=== PATIENT | female | born 1970 | race Caucasian/White ===

== ENCOUNTER → 2017-08-20 | Outpatient (CLI) | payer OTHER ==
[~2017-08-20] MED LIST: ACHD5005 PO; CYCL10TA9 PO; DOCU-143 PO; HYDR-3731 PO; HYOS0.1281 PO; OXYC-12 PO; PNT40TEC PO; POTA10CA16 PO
[2017-08-20 16:09] LABS: BILIRUBIN,URINE NEGATIVE (NEGATIVE); CLARITY,URINE CLEAR; COLOR,URINE YELLOW; GLUCOSE, URINE (UA) NEGATIVE (NEGATIVE); KETONES,URINE NEGATIVE (NEGATIVE); LEUKOCYTE ESTERASE ,URINE NEGATIVE (NEGATIVE); NITRITE,URINE NEGATIVE (NEGATIVE); PH,URINE 6 (5-9); PROTEIN,URINE NEGATIVE (NEGATIVE); UROBILINOGEN,URINE NORMAL (NORMAL)
[2017-08-20 16:21] LABS: BACTERIA,URINE TRACE /HPF
== END ==
LOC: LAB 15:28
PROVIDERS: ATTEND Internal Medicine
DX: R10.84 Generalized abdominal pain (principal); R30.0 Dysuria
CPT/HCPCS: 81000

== ENCOUNTER → 2018-11-12 | Outpatient (CLI) | payer OTHER ==
--- NOTE | 2018-11-12 15:56 | Diagnostic Imaging Report ---
PROCEDURE: US Non-OB pelvis comp/trans. TECHNIQUE: Multiple realtime grayscale images were obtained of the pelvis in various projections endovaginally. Transabdominal imaging was also performed. INDICATION: Postmenopausal bleeding. FINDINGS: The uterus measures 6.4 x 4.9 x 3.2 cm. The endometrium is 5 mm in thickness. No myometrial mass is identified. The right ovary was not visualized. Left ovary measures 5.4 x 3.2 x 2.1 cm. The left ovary does contain a simple appearing cyst measuring 2.2 cm. There is blood flow to the left ovary. No free fluid is seen IMPRESSION: Left ovarian cyst. The study is otherwise unremarkable. Dictated by: Dictated on workstation # [id number]
== END ==
LOC: RAD 14:02
PROVIDERS: ATTEND Obstetrics & Gynecology
DX: N83.202 Unspecified ovarian cyst, left side (principal); N95.0 Postmenopausal bleeding
CPT/HCPCS: 76830; 76856

== ENCOUNTER 2018-11-28 07:43 | Outpatient (CLI) | payer OTHER ==
[~2018-11-28] VITALS: Ht 157.5 cm; Wt 95.3 kg
== END 2018-11-28 13:30 | disposition home or self-care (01) ==
LOC: PREOP 07:43
PROVIDERS: ATTEND Obstetrics & Gynecology
DX: Z01.818 Encounter for other preprocedural examination (principal)

== ENCOUNTER 2018-12-05 09:36 | Day surgery (SDC) | payer OTHER ==
[~2018-12-05] VITALS: Ht 157.5 cm; Wt 95.3 kg
[2018-12-05] VITALS (12 sets, daily range): BP systolic 93–117; BP diastolic 54–100
[2018-12-05] MEDS: LACTATED RINGERS 1,000 ML IV PRN ×2 (10:00→12:36)
[2018-12-05 10:16] LABS: BASOPHILS % (AUTO) 0 % (0-10); EOSINOPHILS # (AUTO) 0.1 10^3/uL (0.0-0.3); EOSINOPHILS % (AUTO) 2 % (0-10); HEMATOCRIT 39 % (35-52); HEMOGLOBIN 12.8 G/DL (11.5-16.0); LYMPHOCYTES # (AUTO) 2.3 X 10^3 (1.0-4.0); LYMPHOCYTES % (AUTO) 36 % (12-44); MEAN CORPUSCULAR HEMOGLOBIN 28 PG (25-34); MEAN CORPUSCULAR HGB CONC 33 G/DL (32-36); MEAN CORPUSCULAR VOLUME 84 FL (80-99); MEAN PLATELET VOLUME 10.7 FL (7.4-10.4); MONOCYTES # (AUTO) 0.4 X 10^3 (0.0-1.0); MONOCYTES % (AUTO) 7 % (0-12); NEUTROPHILS # (AUTO) 3.5 X 10^3 (1.8-7.8); NEUTROPHILS % (AUTO) 55 % (42-75); PLATELET COUNT 219 10^3/uL (130-400); RED CELL DISTRIBUTION WIDTH 14.2 % (10.0-14.5); WHITE BLOOD COUNT 6.4 10^3/uL (4.3-11.0)
[2018-12-05] MEDS ORDERED: D5 LR IV SOLUTION 1,000 ML IV SCH ×2 (10:39)
--- NOTE | 2018-12-05 10:39 | Progress Note-Pre Operative ---
Pre-Operative Progress Note H&P Reviewed The H&P was reviewed, patient examined and no changes noted. Date Seen by Provider: December 05, 2018 Time Seen by Provider: 10:35 Date H&P Reviewed: December 05, 2018 Time H&P Reviewed: 10:35 Pre-Operative Diagnosis: Aub, pmb LAZARO ALMANZAR DO December 05, 2018 10:39
--- NOTE | 2018-12-05 10:43 | Discharge Inst-Women's Service ---
Discharge Inst-Women's Serv Depart Medication/Instructions New, Converted or Re-Newed RX: RX on Chart Consults/Follow Up Additional Follow Up: Yes Orders/Referrals Dr. Almanzar in 2 weeks Activity Activity: Activity as Tolerated Driving Instructions: You May Drive (do not drive today) NO SMOKING: NO SMOKING Nothing Inside Vagina: No Douching, No [place], No Tampons Diet Discharge Diet: No Restrictions Symptoms to Report to : Bleeding Excessive, Pain Increased, Fever Over 101 Degrees F, Vaginal Bleeding Increase, Questions/Concerns LAZARO ALMANZAR DO December 05, 2018 10:43
[2018-12-05] MEDS ORDERED: IBUP-1773 PO (10:45)
[2018-12-05] MEDS ORDERED: KETOROLAC 30 MG/ML VIAL IVP ONE ×2 (10:45)
[2018-12-05] MEDS ORDERED: ONDANSETRON 4 MG/2 ML (SDV) Z0FRAN IVP PRN ×3 (10:45→13:30)
[2018-12-05] MEDS ORDERED: MIDAZOLAM 2 MG/2 ML (VERSED) VIAL ONE (11:31)
[2018-12-05] MEDS ORDERED: fentaNYL INJECTION 100 MCG/2 ML AMP ONE (11:31)
[2018-12-05] MEDS ORDERED: SEVOFLURANE (ULTANE) 15 ML INHAL SOLN ONE ×2 (11:31→12:55)
[2018-12-05] MEDS ORDERED: DEXAMETHASONE 10 MG/ML (DECADRON) 1 ML VIAL ONE (11:31)
[2018-12-05] MEDS ORDERED: proPOfol 200 MG/20 ML (DIPRIVAN) VIAL IV ONE ×2 (11:31→13:00)
[2018-12-05] MEDS ORDERED: ONDANSETRON 4 MG/2 ML (SDV) Z0FRAN ONE (11:31)
[2018-12-05] MEDS ORDERED: LIDOCAINE PF 2% 5 ML (XYLOCAINE) VIAL ONE (11:31)
[2018-12-05] MEDS ORDERED: BUPIVACAINE 0.25% 30 ML (SENSORCAINE) VIAL ONE (11:47)
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
[2018-12-05] MEDS ORDERED: SUCCINYLCHOLINE INJ 100 MG/5 ML SYR ONE (12:55)
[2018-12-05] MEDS ORDERED: KETOROLAC 30 MG/ML VIAL ONE (12:58)
[2018-12-05] MEDS ORDERED: HYDROmorphone 2 MG/ML VIAL (DILAUDID) IV ONE (13:30)
--- NOTE | 2018-12-05 14:26 | Anesthesia-General Post-Op ---
General Patient Condition Mental Status/LOC: Same as Preop Cardiovascular: Satisfactory Nausea/Vomiting: Absent Respiratory: Satisfactory Pain: Controlled Complications: Absent Post Op Complications Complications None Follow Up Care/Instructions Patient Instructions None needed. Anesthesia/Patient Condition Patient Condition Patient is doing well, no complaints, stable vital signs, no apparent adverse anesthesia problems. No complications reported per nursing. LEANDRA ABDI CRNA December 05, 2018 14:26
--- NOTE | 2018-12-05 18:13 | OPERATIVE REPORT ---
DATE OF SERVICE: 12/05/2018 PREOPERATIVE DIAGNOSES: A 48-year-old female with abnormal uterine bleeding and postmenopausal bleeding. POSTOPERATIVE DIAGNOSES: A 48-year-old female with abnormal uterine bleeding and postmenopausal bleeding. PROCEDURES: D and C, hysteroscopy. SURGEON: Lazaro Almanzar DO ANESTHESIA: General LMA. ESTIMATED BLOOD LOSS: Minimal. URINE OUTPUT: 100 mL. FLUIDS: 1100 mL lactated Ringer's solution. FINDINGS: A fluffy endometrial tissue suspicious for a polyp around the right endometrial sidewall. SPECIMEN SENT: Endometrial curettings. INDICATIONS FOR PROCEDURE: This 48-year-old patient was a consultation to me from Dr. Foley for abnormal postmenopausal uterine bleeding that was continued to occur more frequently and heavier despite an elevated FSH. I saw the patient in the office and discussed endometrial sampling versus D and C. We discussed the pros and cons of each and she decided that a D and C would probably be best for her. Risks of the procedure were discussed with the patient in detail including risk of bleeding, infection, damage to surrounding structures including, but not limited to the uterus itself. After all of her questions were answered, the consent was reviewed in the preoperative area and the patient was taken to the operating room. OPERATIVE REPORT IN DETAIL: Once in the operating room, anesthesia was found to be adequate. She was placed in dorsal lithotomy position and prepped and draped in normal sterile fashion. The bladder was drained using straight catheterization. A weighted speculum was inserted into the patient's vagina. Right angle retractor was used to visualize the cervix, which was grasped at 12 o'clock position using a long Allis clamp. I then performed a paracervical block at 3 and 9 o'clock positions on the cervix using 0.25% Marcaine. 5 mL were injected at each site. Care was taken to aspirate before injecting. After that is performed, I then gently sounded the uterine cavity, depth was found to be 7 cm. I then gently dilated the cervix using hanks dilators to a maximum dilatation of approximately 5 to 6 mm, at which point, I advanced the hysteroscope and using normal saline as my visual medium, I am able to visualize the endometrial cavity. There was a grossly apparent thickened polypoid-appearing tissue along the right endometrial sidewall consistent with a diagnosis of a possible endometrial polyp. After I visualized this, the rest of the cavity appears grossly normal. I then removed the hysteroscope and curetted this area collecting the polyp itself. A gentle curetting was performed of all of the endometrial surface and sent as endometrial curettings. The patient tolerated the procedure well and was taken to recovery area in stable condition. After that point, all instruments were removed. Lap and sponge counts were correct at the end of the procedure. Instrument counts were correct as well. Job ID: [id number] DocumentID: [id number] Dictated Date: 12/05/2018 13:07:59 [employer]ocomotive [employer] Date: 12/05/2018 18:12:42 Dictated By: LAZARO ALMANZAR DO
== END 2018-12-05 15:10 | disposition home or self-care (01) ==
LOC: SDC 09:36
PROVIDERS: ATTEND Obstetrics & Gynecology
DX: N95.0 Postmenopausal bleeding (principal); K21.9 Gastro-esophageal reflux disease without esophagitis; E66.01 Morbid (severe) obesity due to excess calories; Z68.38 Body mass index [BMI] 38.0-38.9, adult; Z87.891 Personal history of nicotine dependence
CPT/HCPCS: 36415; 84703; 85025; 86850; 86900; 86901; 87081

== ENCOUNTER 2019-04-08 11:15 | Outpatient (CLI) | payer OTHER ==
[~2019-04-08] VITALS: Ht 157 cm; Wt 97.5 kg
[~2019-04-08 11:15] MED LIST changes: +IBUP-1773 PO
[2019-04-08 11:28] VITALS: BP 114/79
[2019-04-08 11:53] LABS: BASOPHILS % (AUTO) 0 % (0-10); EOSINOPHILS # (AUTO) 0.1 10^3/uL (0.0-0.3); EOSINOPHILS % (AUTO) 2 % (0-10); HEMATOCRIT 37 % (35-52); HEMOGLOBIN 12.3 G/DL (11.5-16.0); LYMPHOCYTES # (AUTO) 1.6 X 10^3 (1.0-4.0); LYMPHOCYTES % (AUTO) 27 % (12-44); MEAN CORPUSCULAR HEMOGLOBIN 28 PG (25-34); MEAN CORPUSCULAR HGB CONC 33 G/DL (32-36); MEAN CORPUSCULAR VOLUME 84 FL (80-99); MEAN PLATELET VOLUME 10.3 FL (7.4-10.4); MONOCYTES # (AUTO) 0.4 X 10^3 (0.0-1.0); MONOCYTES % (AUTO) 7 % (0-12); NEUTROPHILS # (AUTO) 3.9 X 10^3 (1.8-7.8); NEUTROPHILS % (AUTO) 64 % (42-75); PLATELET COUNT 209 10^3/uL (130-400); RED CELL DISTRIBUTION WIDTH 13.6 % (10.0-14.5); WHITE BLOOD COUNT 6.1 10^3/uL (4.3-11.0)
== END 2019-04-08 15:43 | disposition home or self-care (01) ==
LOC: PREOP 11:15
PROVIDERS: ATTEND Obstetrics & Gynecology
DX: Z01.812 Encounter for preprocedural laboratory examination (principal); N93.8 Other specified abnormal uterine and vaginal bleeding
CPT/HCPCS: 36415; 85025; 86850; 86900; 86901; 87081

== ENCOUNTER 2019-04-14 05:54 | Day surgery (SDC) | payer OTHER ==
[2019-04-14] VITALS (11 sets, daily range): BP systolic 107–135; BP diastolic 61–94
[~2019-04-14] VITALS: Ht 157 cm; Wt 97.5 kg
[2019-04-14] MEDS ORDERED: LACTATED RINGERS 1,000 ML IV PRN (06:05)
[2019-04-14] MEDS ORDERED: LACTATED RINGERS 1,000 ML IV SCH (06:05)
[2019-04-14] MEDS ORDERED: metroNIDAZOLE 500MG/100ML IVPB 100 ML IV ONE (06:15)
[2019-04-14] MEDS ORDERED: metroNIDAZOLE 500MG/100ML IVPB 100 ML ONE (06:40)
[2019-04-14] MEDS ORDERED: AMOX-355 PO (06:50)
[2019-04-14] MEDS ORDERED: BUPIVACAINE 0.25% 30 ML (SENSORCAINE) VIAL ONE (06:51)
[2019-04-14] MEDS ORDERED: fentaNYL INJECTION 100 MCG/2 ML AMP ONE ×2 (06:56→09:00)
[2019-04-14] MEDS ORDERED: MIDAZOLAM 2 MG/2 ML (VERSED) VIAL ONE (06:56)
[2019-04-14] MEDS ORDERED: CATHETER FLUSH 10 ML SYR IV PRN (07:00)
[2019-04-14] MEDS ORDERED: ceFAZolin 2 GM IV Premixed 50 ML IV ONE (07:00)
--- NOTE | 2019-04-14 07:09 | Discharge Inst-Women's Service ---
Discharge Inst-Women's Serv Depart Medication/Instructions New, Converted or Re-Newed RX: RX on Chart Consults/Follow Up Additional Follow Up: Yes Activity Activity: Activity as Tolerated Driving Instructions: No Driving for 1 Week NO SMOKING: NO SMOKING Nothing Inside Vagina: No Douching, No [place], No Tampons Diet Discharge Diet: No Restrictions Symptoms to Report to : Pain Increased, Fever Over 101 Degrees F, Vaginal Bleeding Increase For Any Problems or Questions: Contact Your Physician Skin/Wound Care Infection Signs and Symptoms: Foul Odor of Wound, Increased Drainage, Skin Itchy or Has a Rash, Increased Swelling, Temperature Above 101 F Operative Area Clean and Dry: Keep Incision Clean/Dry Stitches/[place]/Dermabond: Dermabond Bathing Instructions: MAGED Nelson APRN Apr 14, 2019 07:09
[2019-04-14] MEDS ORDERED: IBUP-844 PO (07:12)
[2019-04-14] MEDS ORDERED: DOCU100C37 PO (07:12)
[2019-04-14] MEDS ORDERED: HYDR-34 PO (07:12)
[2019-04-14] MEDS ORDERED: SIME80TA16 PO (07:12)
[2019-04-14] MEDS ORDERED: CHLORASEPTIC LOZENGE MM PRN (07:15)
[2019-04-14] MEDS ORDERED: SIMETHICONE 80 MG (MYLICON) CHEW PO PRN (07:15)
[2019-04-14] MEDS ORDERED: ZOLPIDEM 5 MG (AMBIEN) TAB PO PRN (07:15)
[2019-04-14] MEDS ORDERED: ANTACID SUSP 30 ML UDC (MYLANTA) PO PRN (07:15)
[2019-04-14] MEDS ORDERED: DOCUSATE SODIUM 100 MG (COLACE) CAP PO PRN (07:15)
[2019-04-14] MEDS ORDERED: SEVOFLURANE (ULTANE) 15 ML INHAL SOLN ONE ×2 (08:42→09:02)
[2019-04-14] MEDS ORDERED: ONDANSETRON 4 MG/2 ML (SDV) Z0FRAN ONE (08:42)
[2019-04-14] MEDS ORDERED: proPOfol 200 MG/20 ML (DIPRIVAN) VIAL IV ONE (08:42)
[2019-04-14] MEDS ORDERED: LIDOCAINE PF 2% 5 ML (XYLOCAINE) VIAL ONE (08:42)
[2019-04-14] MEDS ORDERED: ROCURONIUM 10 MG/ML 5 ML SYRINGE IV ONE (08:42)
[2019-04-14] MEDS ORDERED: DEXAMETHASONE 10 MG/ML (DECADRON) 1 ML VIAL ONE (08:42)
[2019-04-14] MEDS ORDERED: NEOSTIGMINE 3 MG/3 ML VIAL ONE (08:42)
[2019-04-14] MEDS ORDERED: GLYCOPYRROLATE 0.2 MG/ML (ROBINUL) 2 ML VIAL ONE (08:42)
[2019-04-14] MEDS ORDERED: morphine INJ 10 MG/ML 1ML (SYR OR VIAL) IVP ONE (09:30)
[2019-04-14] MEDS ORDERED: HYDROmorphone 2 MG/ML VIAL (DILAUDID) IV ONE (09:30)
[2019-04-14] MEDS ORDERED: ONDANSETRON 4 MG/2 ML (SDV) Z0FRAN IVP PRN (09:30)
[2019-04-14] MEDS ORDERED: morphine INJ 10 MG/ML 1ML (SYR OR VIAL) ONE (09:33)
[2019-04-14] MEDS ORDERED: KETOROLAC 30 MG/ML VIAL ONE (09:33)
[2019-04-14] MEDS: KETOROLAC 30 MG/ML VIAL IV PRN ×3 (09:36→21:43)
--- NOTE | 2019-04-14 10:15 | NUR ---
PT ARRIVES TO [facility] 306 FROM PACU, ACCOMPANIED BY MILTON CANELA, RN & LAUREN RN, PUSHED IN BED. PT APPEARS TO BE RESTING. BEDSIDE REPORT GIVEN BY MILTON CANELA RN TO THIS RN. PHYSICAL ASSESSMENT COMPLETED BY THIS RN, PT HOOKED TO SCD, O2, SPO2 MONITOR, WARM PACK APPLIED TO ABDOMEN PT C/O OF ABD CRAMPING. PT DROWSY, IN & OUT OF SLEEP BUT C/O PAIN 10/10 (CRAMPING). ICE CHIPS GIVEN TO PT AND TOLERATED WELL.
--- NOTE | 2019-04-14 10:30 | NUR ---
AT BEDSIDE. CALL LIGHT WITHIN REACH. THIS RN IN & OUT OF ROOM FREQUENTLY.
[2019-04-14] MEDS: LACTATED RINGERS 1,000 ML IV SCH ×2 (10:44→19:39)
[2019-04-14] MEDS: HYDROcodone/APAP 7.5 MG/325 MG (LORTAB, LORCET PLUS) TABLET PO PRN (10:45)
[2019-04-14] MEDS: ONDANSETRON 4 MG/2 ML (SDV) Z0FRAN IV PRN ×2 (10:49→15:56)
--- NOTE | 2019-04-14 11:55 | NUR ---
THIS RN AT BEDSIDE. PT APPEARS TO BE RESTING. PT STATES HYDROCODONE DID NOT TOUCH HER PAIN, STILL RATING 10/10 C/O CRAMPING LOWER ABDOMEN. THIS RN APPLIES ANOTHER HEAT PACK. ADEQUATE URINE OUTPUT IS OBSERVED FROM INDWELLING LESLIE CATH. THIS RN CALLS DR ALMANZAR AT 1159 WITH UPDATED PT REPORT. ORDER RECEIVED FOR 1MG DILAUDID Q3H FOR BREAK THROUGH PAIN.
[2019-04-14] MEDS ORDERED: HYDROmorphone 2 MG/ML VIAL (DILAUDID) IV PRN (12:00)
--- NOTE | 2019-04-14 16:19 | OPERATIVE REPORT ---
DATE OF SERVICE: 04/14/2019 PREOPERATIVE DIAGNOSES: 1. A 48-year-old female with dysfunctional uterine bleeding. 2. BMI greater than 50. POSTOPERATIVE DIAGNOSES: 1. A 48-year-old female with dysfunctional uterine bleeding. 2. BMI greater than 50. 3. Dense omental adhesions of the left ovary into the ovarian fossa as well as adhesions of the vesicouterine peritoneum. PROCEDURES PERFORMED: Robotic-assisted total laparoscopic hysterectomy with bilateral salpingo-oophorectomy as well as extensive lysis of adhesions. SURGEON: Gonzalo Gaitan DO UNEMPLOYMENT BENEFITS CLAIMS TAKER: Skylar Ontiveros DNP, who was necessary for retraction and manipulation of vital vascular and neurovascular structures throughout the procedure. ANESTHESIA: General endotracheal. ESTIMATED BLOOD LOSS: 50 mL. URINE OUTPUT: 150 mL, clear at the end of the procedure. FLUIDS: 1700 mL of lactated Ringer solution. FINDINGS: A grossly normal-appearing uterus, bilateral fallopian tubes and ovaries that are grossly normal. There are multiple simple-appearing clear fluid cysts on bilateral ovaries. There are adhesions of the left ovary densely to the left ovarian fossa coming extremely close to the left ureter during my blunt dissection. There were also dense adhesions of the vesicouterine peritoneum on the lower uterine segment as well as adhesions of the omentum to the anterior abdominal wall. SPECIMEN SENT: Uterus, bilateral fallopian tubes and ovaries. INDICATIONS FOR PROCEDURE: This is a 48-year-old female with a consultation to me for ongoing issues with heavy vaginal bleeding. She had tried more conservative measures including a D and C in the past as well as hormonal management of her bleeding, none of this has seemed to help. She was becoming quite frustrated with the amount of bleeding she has been having and wished to proceed with more definitive measures. We discussed briefly endometrial ablation and the failure rate associated with it. She was not okay with the failure rate at all. She also has concerns with ovarian cancer as there has been distant family members that are affected by this. The patient wished to proceed with hysterectomy. Risks of procedure were discussed with the patient in detail including risk of bleeding, infection, damage to any surrounding structures including but not limited to bowel, bladder, ureter, kidneys, possible need for reoperation, possible recovery timeframe, possible need for laparotomy, risk from anesthesia, risk for possible blood transfusion and even . After everything was discussed with the patient in detail, consent was obtained after all of her questions were answered and the patient was taken to the operating room. OPERATIVE REPORT IN DETAIL: Once in the operating room, general anesthesia was found to be adequate, placed in dorsal lithotomy position, prepped and draped in normal sterile fashion. A timeout was performed. Vicente catheter was placed using sterile technique. A weighted speculum was inserted in the patient's vagina. Right angle retractor was used to visualize the cervix, which was grasped at 12 o'clock position using a long single-tooth tenaculum and #0 Vicryl suture was then placed on the anterior lip of the cervix and the tenaculum was then removed. I then gently sound the uterine cavity and depth was found to be approximately 8 cm and gently placed a Stefany uterine manipulator tip into the uterus and selected 3 cm colpotomy ring. Once the manipulator tip was in the uterus, I advance the colpotomy ring around the vaginal fornix and an #0 Vicryl suture was placed through the anterior lip of the cervix, which was secured to the Stefany uterine manipulator. Once this was all performed, all the other instruments were removed from the patient's vagina short of the Stefany uterine manipulator. I performed a change of gloves and took my attention to the abdomen where supraumbilical I infiltrated this area using 0.25% Marcaine and make an 8 mm incision, directed Veress needle through the incision until the intraperitoneal placement was confirmed using saline drop test. An opening pressure of 5 mmHg was noted. I proceeded to maximum pressure of 15 mmHg, at which point I removed the Veress needle and introduced an 8 mm blunt da Fransisco camera trocar. Once this was in place, I am able to confirm intraperitoneal placement using the da Fransisco laparoscope. There are dense omental adhesions extending from my access point on the peritoneum all the way down to the pelvis anteriorly. I placed the lateral trocars. Due to the fact that I am above these adhesions I am able to place him under direct visualization of laparoscope. These were approximately 8 cm lateral to my supraumbilical trocar. The skin was infiltrated using 0.25% Marcaine with 8 mm incisions were made and the trocars were placed under direct visualization and laparoscope. Once these were both in place, I brought in the da Fransisco robot and docked in appropriate fashion placing the monopolar kaylee in the right hand and a vessel sealer in the left hand. I began the case by taking down these anterior abdominal omental adhesions. This was done both bluntly and sharply and with some energy as well to help prevent bleeding during my dissection process. Once this was done, I am able to visualize all my pelvic anatomy findings as described in my findings above. I started by liberating the left ovary from the left ovarian fossa that was not free floating. I have to do this using a sharp and blunt dissection. I avoided using energy due to the proximity of the adhesions of the ovary to the ureter. During the process of doing so, I am able to visualize the ureter and I am able to stay clear of it. However, this dissection was difficult and takes approximately 15-20 minutes to get the ovary off of the left ovarian fossa. Once this was freed up, I am able to perform the following dissection bilaterally. I started by grasping the infundibulopelvic ligament, bipolar cauterized and transected using the vessel sealer. I then grasped the round ligament, bipolar cauterized and transected using the vessel sealer. I then grasped the entire broad ligament using the vessel sealer bipolar cauterized and transected using the vessel sealer. I then able to separate the posterior and anterior leaflets of the broad ligament, anterior leaflet was taken around to the anterior vaginal fornix, which was a difficult dissection because there are adhesions of the anterior pelvic peritoneum to the vesicouterine peritoneum. This has to be taken down with both blunt and sharp dissection. Once I am able to isolate the anterior vaginal fornix cup of the Stefany uterine manipulator, I am able to take the peritoneal dissection of the broad ligament around to the anterior vaginal fornix. The posterior leaflet was taken around to the posterior vaginal fornix. This allows me to skeletonize the uterine vessels laterally, which I then bipolar cauterized and transected using the vessel sealer. After this was done, I created a colpotomy at 12 o'clock position using monopolar kaylee. I am able to identify the Stefany uterine manipulator colpotomy ring. I took my dissection using the monopolar kaylee around the colpotomy ring, amputating the cervix from the vaginal fornix. Once this was completed, the entire specimen was then removed through the vagina. I then closed the lateral vaginal apices of the vaginal cuff using 2-0 Vicryl suture in a [id number] fashion colposuspending them to the uterosacral ligaments. I then closed the remainder of the vaginal cuff using 2-0 V-Loc in a running fashion, after which there was no active bleeding noted from any of my dissection planes. I then undocked the da Fransisco robot and proceeded with remainder of the case laparoscopically. I copiously irrigated the pelvis using normal saline. Once again, there was no active bleeding noted from any of my dissection planes, identified bilateral ureters which were peristalsing and clear of my dissection planes as well. I then covered all my planes of dissection using Surgiflo hemostatic agent and had the patient taken out of steep Trendelenburg at which point I am able to identify a small bleeder on the omentum that was taken down earlier from my lysis of adhesions. I covered this area using Surgiflo as well due to my inability to actually isolated areas of bleeding and oozing that was ever so slightly. After this was done, I removed the lateral trocars under direct visualization of laparoscope. The supraumbilical trocar was left in place to release the remainder of the insufflation and to introduce 10 mL of 0.25% Marcaine into the peritoneal cavity for postoperative pain management. I then removed this trocar as well. The skin was reapproximated using 4-0 Monocryl in interrupted subcuticular stitches. Dermabond was placed on the incision and Band-Aids placed over these, 2 g of Ancef and 500 mg of lidocaine preoperatively for infection prophylaxis. The patient tolerated the procedure well and sent to recovery in stable condition. Job ID: [id number] DocumentID: [id number] Dictated Date: 04/14/2019 09:11:56 Computer Network Specialist Date: 04/14/2019 16:18:31 Dictated By: DO KB WU
--- NOTE | 2019-04-14 16:29 | NUR ---
dr hoffman called at this time with updated pt report. pt still very nauseous, unable to eat or walk due to nausea, pain under controll at this time. zofran has been admin but has not given relief. order for phenergan received.
[2019-04-14] MEDS ORDERED: PROMETHAZINE INJ 25 MG/ML (PHENERGAN) AMP IVP PRN (16:30)
[2019-04-14] MEDS ORDERED: PROMETHAZINE INJ 25 MG/ML (PHENERGAN) AMP ONE (16:33)
--- NOTE | 2019-04-14 17:05 | NUR ---
dr hoffman updated on pt status. pt Co nausea however refused the phenergan bc she doesnt want to be sleepy. pt wanted to try to walk instead. this rn walked with pt down [address]. pt gagged and fought nausea the entire time. iv fluids started again and pt laying in bed. pt still refuses phenergan. rn unsure if pt will be able to be Dc to home this evening. dr hoffman states he will just see her in the AM.
--- NOTE | 2019-04-14 18:35 | NUR ---
THIS RN GIVES DR ALMANZAR AN UPDATE ON PT REPORT. PT ABLE TO EAT CRACKERS AND LAY ON SIDE WHICH MAKES HER FEEL BETTER. PT STATES SOON SHE SITS UP, NAUSEA COMES BACK AND IS UNABLE TO STAY SITTING UP. PT STILL REFUSING PHENERGAN. PAIN UNDER CONTROL. PT HAS VOIDED. DR ALMANZAR STATES SHE MAY HAVE A SCOPALOMINE PATCH IF SHE WANTS ONE BUT FEELS THAT THE PHENERGAN WILL HELP HER SLEEP IT OFF AT THIS POINT.
[2019-04-14] MEDS ORDERED: SCOPOLAMINE 1.5 MG (TRANSDERM-SCOP) PATCH TD NR (19:00)
[2019-04-14] MEDS ORDERED: IBUPROFEN 600 MG (MOTRIN) TAB PO PRN (23:45)
[2019-04-15 00:05] VITALS: BP 123/82
[2019-04-15] MEDS: HYDROcodone/APAP 7.5 MG/325 MG (LORTAB, LORCET PLUS) TABLET PO PRN (00:11)
[2019-04-15 04:00] VITALS: BP 132/75
--- NOTE | 2019-04-15 07:12 | Anesthesia-General Post-Op ---
General Patient Condition Mental Status/LOC: Same as Preop Cardiovascular: Satisfactory Nausea/Vomiting: Absent Respiratory: Satisfactory Pain: Controlled Complications: Absent Post Op Complications Complications None Follow Up Care/Instructions Patient Instructions None needed. Anesthesia/Patient Condition Patient Condition Patient is doing well, no complaints, stable vital signs, no apparent adverse anesthesia problems. No complications reported per nursing. JOHN HERNANDEZ CRNA Apr 15, 2019 07:12
--- NOTE | 2019-04-15 08:05 | NUR ---
Dr. Gaitan to room to see pt.
[2019-04-15 08:45] VITALS: BP 103/64
--- NOTE | 2019-04-15 09:30 | NUR ---
DISCHARGE INSTRUCTIONS EXPLAINED TO PT WITH COPY PROVIDED TO PT ALONG WITH PRESCRIPTIONS. PT VERBALIZES UNDERSTANDING OF INSTRUCTIONS AND SIGNS TO VERIFY. PT DENIES NEEDS OR CONCERNS AT THIS TIME. IV SALINE LOCK REMOVED AT THIS TIME. PT TAKEN OFF UNIT VIA WHEELCHAIR TO PRIVATE VEHICLE ACCOMPANIED BY S.O. WITH ALL PERSONAL BELONGINGS. NO S/S OF DISTRESS NOTED.
[2019-04-17] MEDS ORDERED: SCOPOLAMINE PATCH REMOVAL TP SCH (19:00)
== END 2019-04-15 09:30 | disposition home or self-care (01) ==
LOC: SDC 05:54 → WS 09:11 → SDC 04-15 09:30
PROVIDERS: ATTEND Obstetrics & Gynecology
DX: N80.0 Endometriosis of uterus (principal); N83.01 Follicular cyst of right ovary; N83.202 Unspecified ovarian cyst, left side; N73.6 Female pelvic peritoneal adhesions (postinfective); N93.8 Other specified abnormal uterine and vaginal bleeding; M79.7 Fibromyalgia; K21.9 Gastro-esophageal reflux disease without esophagitis; D64.9 Anemia, unspecified; G43.909 Migraine, unspecified, not intractable, without status migrainosus; E66.9 Obesity, unspecified; F41.9 Anxiety disorder, unspecified; Z68.39 Body mass index [BMI] 39.0-39.9, adult; Z88.5 Allergy status to narcotic agent; Z88.7 Allergy status to serum and vaccine; Z87.898 Personal history of other specified conditions; Z87.891 Personal history of nicotine dependence; Z98.51 Tubal ligation status; Z90.89 Acquired absence of other organs; Z83.2 Family history of diseases of the blood and blood-forming organs and certain disorders involving the immune mechanism; Z82.49 Family history of ischemic heart disease and other diseases of the circulatory system; Z83.3 Family history of diabetes mellitus
CPT/HCPCS: 36415; 84703; 86850; 86900; 86901; 88307; 94664

== ENCOUNTER 2020-01-12 07:15 | Outpatient (CLI) | payer OTHER ==
[~2020-01-12] VITALS: Ht 157.5 cm; Wt 87.7 kg
[~2020-01-12 07:15] MED LIST changes: +AMOX-355 PO; +DOCU100C37 PO; +ESCI10TA PO; +ESTR1TAB24 PO; +HYDR-34 PO; +IBUP-844 PO; +SIME80TA16 PO
== END 2020-01-12 14:17 ==
LOC: PREOP 07:15
PROVIDERS: ATTEND Internal Medicine
DX: Z01.818 Encounter for other preprocedural examination (principal); Z20.828 Contact with and (suspected) exposure to other viral communicable diseases
CPT/HCPCS: 87635

== ENCOUNTER 2020-01-15 06:59 | Day surgery (SDC) | payer OTHER ==
--- NOTE | 2020-01-02 17:05 | HISTORY AND PHYSICAL ---
DATE OF SERVICE: COLONOSCOPY HISTORY AND PHYSICAL HISTORY OF PRESENT ILLNESS: The patient is a 49-year-old white female, who presented to the office with a 4-week history of burning epigastric discomfort. Again, it is typically 30 minutes after meals and radiates up into her chest. It occasionally wakes her up at night. She reports she has been under increased stress. She reports diminished appetite and she believes she has lost 7 or 8 pounds over the last month. She was down 6.6 pounds by our office scales compared to last office weight 7 weeks ago. She denies melena or bright red blood per rectum. She denies aspirin or any nonsteroidal medication use. She has taken some occasional antacids, which do partially alleviate her symptoms for an hour or two. Food temporarily improves her symptoms. PAST MEDICAL HISTORY: Significant for anxiety and some depression symptoms that she reports that she has been for the most part in remission on Lexapro 10 mg daily. She has no known past history of peptic ulcer disease. PAST SURGICAL HISTORY: Significant for cholecystectomy [address] Grayson. She had BALDOMERO and BSO for dysfunctional bleeding in April. PHYSICAL EXAMINATION: GENERAL: Reveals a white female, appears to be in mild distress. VITAL SIGNS: Weight 205 pounds, blood pressure 104/76. HEENT: Unremarkable. No evidence for pallor was noted. CHEST: Clear to auscultation. CARDIOVASCULAR: Reveals a regular rate and rhythm without murmur, S3 or S4. ABDOMEN: Soft, supple without mass or organomegaly. Epigastric discomfort to palpation is present without rebound or guarding. Bowel sounds are positive. No bruits are appreciated. No evidence for abdominal aortic aneurysm to palpation is noted. EXTREMITIES: Reveal no cyanosis, clubbing or edema. ASSESSMENT AND PLAN: The patient was set up for screening EGD for evaluation of epigastric pain with weight loss. She has not accomplished previous screening colonoscopy and so screening colonoscopy will be performed at the same time. Prep instructions with Suprep kit were given and questions were answered. We did initiate omeprazole 20 mg daily with instructions to avoid aspirin and nonsteroidal medication. Job ID: [id number] DocumentID: [id number] Dictated Date: 01/02/2020 14:57:16 Creative Services Writer Date: 01/02/2020 15:08:08 Dictated By: WINSTON ULRICH MD
[~2020-01-15] VITALS: Ht 157.5 cm; Wt 87.7 kg
--- OUTSIDE RECORDS SUMMARY | 2020-01-15 07:04 | XMS REPORT ---
Author Author [facility] conservation planner [employer] Organization [employer] conservation planner needmade Address [address] [address] Care Team Providers Care Pheresis Specialist Name Role Phone WINSTON ULRICH Unavailable WINSTON ULRICH MD Unavailable Unavailable JEFFERY ALVARENGA MD Unavailable Unavailable SHAQUILLE NEWMAN DO Unavailable Unavailable EDITH TIWARI DO Unavailable Unavailable BRENNEN LEE MD Unavailable Unavailable LAZARO ALMANZAR DO Unavailable Unavailable WINSTON ULRICH PCP Unavailable Unavailable Unavailable Unavailable Unavailable Unavailable Allergies Allergy Reported Allergen(s) Allergy Type Date of Reaction(s) Care Facility Classificati Onset Provider on Opioid Codeine ; Translations: Drug Allergy 04-14-2019 BYRON ULRICH [facility] Via [facility]onists [Codeine] MD Ruiz (20 sources) [facility] ([id number]) Unclassified Tetanus Vaccines and DA 01-18-2015 ANAPHYLAXSI S BRENNEN Camacho (25 sources) Toxoid Available ([id number]) Encounters Encounter Date Encounter Type Encounter Diagnosis Care Provider Facility Start: Admission to same day WINSTON Araujo on [address] 04-14-2019 surgery center Work Phone: [place] [phone] End: 04-15-2019 Start: Patient encounter LAZARO JAMALALEK [facility] [address] 04-14-2019 procedure [facility] ([id number]) End: 04-15-2019 Start: Patient encounter LAZARO JENELLE DO [facility] Via 04-14-2019 [facility] ([id number]) End: 04-15-2019 Start: Patient encounter WINSTON Eli V [address] 04-08-2019 procedure Work Phone: [place] [phone] End: 04-08-2019 Start: Patient encounter LAZARO JENELLE FENG [facility] [address] 04-08-2019 procedure [facility] ([id number]) Start: Patient encounter LAZARO ALMANZAR DO [facility] 04-08-2019 procedure [facility] ([id number]) End: 04-08-2019 Start: Patient encounter LAZARO ALMANZAR DO [facility] [address] 12-05-2018 procedure [facility] ([id number]) Start: Patient encounter LAZARO ALMANZAR DO [facility] 12-05-2018 [facility] ([id number]) End: 12-05-2018 Start: Patient encounter LAZARO ALMANZAR DO [facility] 11-28-2018 [facility] ([id number]) Start: Patient encounter LAZARO ALMANZAR DO [facility] [address] 11-28-2018 procedure [facility] ([id number]) End: 11-28-2018 Start: Patient encounter LAZARO ALMANZAR DO [facility] 11-12-2018 [facility] ([id number]) Start: Patient encounter LAZARO ALMANZAR DO [facility] 11-12-2018 [facility] ([id number]) Start: Patient encounter WINSTON ULRICH MD Not [facility]ail[facility] ble ([id number]) 08-20-2017 procedure Start: Patient encounter WINSTON ULRICH MD [facility] Via risti 08-20-2017 [facility] ([id number]) Start: Patient encounter SHAQUILLE NEWMAN DO Not [facility]ail[facility] ([id number]) 04-30-2015 procedure End: 04-30-2015 Start: Patient encounter SHAQUILLE NEWMAN DO [facility] [address] 04-30-2015 [facility] ([id number]) End: 04-30-2015 Start: Emergency department JEFFERY ALVARENGA MD [facility] Vi a 04-29-2015 patient visit [facility] ([id number]) End: 04-29-2015 Start: Patient encounter WINSTON ULRICH MD [facility] Via [address] 03-31-2015 procedure [facility] ([id number]) Start: Patient encounter WINSTON ULRICH MD [facility] [address] 01-26-2015 procedure [facility] ([id number]) End: 01-26-2015 Start: Patient encounter WINSTON ULRICH MD [facility] Via [address] 01-26-2015 procedure [facility] ([id number]) End: 01-26-2015 Start: Patient encounter WINSTON ULRICH MD [facility] ([id number]) 01-22-2015 procedure Start: Patient encounter WINSTON ULRICH MD [facility] [address] 01-22-2015 procedure [facility] ([id number]) Start: Emergency department EDITH TIWARI DO Not Avai lable ([id number]) 01-18-2015 patient visit End: 01-18-2015 Start: Emergency department EDITH TIWARI DO [facility] Via [facility] 01-18-2015 patient visit [facility] ([id number]) End: 01-18-2015 Start: Patient encounter BRENNEN LEE MD Not [facility]ail[facility] ble ([id number]) 10-07-2011 procedure End: 10-07-2011 Start: Patient encounter BRENNEN LEE MD [facility] [address] 10-06-2011 procedure [facility] ([id number]) End: 10-07-2011 EXAM PRE-OPERATIVE Pre-operative WINSTON ULRICH MD [facility] [address] NOS examination, [facility] unspecified ([id number]) Encounter for other LAZARO ALMANZAR DO [facility] Via [facility] examination ([id number]) Encounter for LAZARO ALMANZAR DO [facility] Via [facility] laboratory ([id number]) examination Medical Equipment The data below is from unstructured sourcesNo Medical Equipment Information availableNo Medical Equipment Information availableNo Medical Equipment Information available Goals Date Patient Goal Desired Activity/St ate Immunizations Immunizatio Immunization Notes Care Provider Facility n Date 04-14-2019 WINSTON ULRICH [place] [address] [employer] Work Phone: [facility] ([id number]) 04-08-2019 WINSTON ULRICH [place] [facility] [employer] Work Phone: [facility] ([id number]) 12-05-2018 WINSTON ULRICH [place] [facility] [employer] Work Phone: [facility] ([id number]) Interventions No Information Medications Medication Drug Dates Sig Sig (Original) Class(es) (Normalized) amoxicillin 500 mg / Penicillin Amoxicillin/Potas sium Clav Active 1 ORAL clavulanate 125 mg oral -class Twice A Day tablet Antibacter (1 source) ial cyclobenzaprine Muscle Start: Cyclobenzaprin e Hcl Discontinued 1 ORAL (2 sources) Relaxant 08-20-2012 Q8hr Prn Aug ruary 2012 1:33pm January 18, 2015 End: 01-18-2015 ibuprofen 600 mg oral Nonsteroid Start: Ibuprofe n Discontinued 600 ORAL Every 6 tablet al 04-14-2019 Hours as needed for Pain-Moderate 80 (3 sources) Anti-infla April 14, 2019 7:12am (One-Time) mmatory End: Drug 04-14-2019 Start: 12-05-2018 Ibuprofen End: 04-08-2019 Discontinued 600 ORAL Every 6 Hours for Pain 60 December 05, 2018 10:45am April 08, 2019 Oxycodone End: Oxycodone Hcl/Aceta minophen Discontinued Hcl/Acetaminophen 08-15-2012 1 - 2 ORAL Every 4H RS 35 August 15, (2 sources) 2012 Potassium Chloride Start: Potassium Chloride Discontinued 20 ORAL (2 sources) 08-20-2012 Twice A Day 3 2012 1:33pm January 18, 2015 End: 01-18-2015 simethicone 80 mg Start: Simethicone Discont inued 40 ORAL Three chewable tablet 04-14-2019 Times A Day as need ed for Indigestion (1 source) 2ND Line 80 April 14, 2019 7:12am End: (One-Time) 04-14-2019 Payers Date Payer Normalized Payer [id number] Plan of Treatment Date Care Activity Detail Author Methicillin resistant [place] [facility] Staphylococcus aureus [facility] ([id number]) [Presence] in Unspecified specimen by Organism specific culture Patient Education [place] [facility] ([id number]) Problems Active Problems Problem Problem Date Last Documented Episodic/Chr Provider Classificati Recorded Date onic on Abdominal Diaphragmatic hernia without Episodic WINSTON ULRICH hernia mention of obstruction or gangrene (8 sources) Abdominal Generalized abdominal pain ; Episodic WINSTON ULRICH pain Translations: [Abdominal pain, (18 sources) epigastric] Allergic Allergy status to narcotic agent Episodic LAZARO reactions status ; Translations: [ALLERGY FEN ECH DO (8 sources) STATUS TO SERUM AND VACCINE STAT] Anxiety Anxiety disorder, unspecified Chronic LAZARO disorders FENECH DO (4 sources) Contraceptiv Tubal ligation status Episodic MICHAE L e and FENECH DO procreative management (4 sources) Deficiency Anemia, unspecified Episodic LAZARO and other FENECH DO anemia (4 sources) Endometriosi Endometriosis of uterus Chronic CIARA AEL s FENECH DO (4 sources) Esophageal Gastro-esophageal reflux disease Chronic LAZARO disorders without esophagitis FENECH DO (7 sources) Headache; Migraine, unspecified, not Chronic M ICHAEL including intractable, without status FENECH DO migraine migrainosus (4 sources) Inflammatory Female pelvic peritoneal adhesions Episodic LAZARO diseases of (postinfective) FENECH DO female pelvic organs (4 sources) Menopausal Postmenopausal bleeding Chronic CIARA AEL disorders FENECH DO (7 sources) Nausea and Nausea alone Episodic WINSTON ULRICH vomiting (8 sources) Nonspecific Chest pain, unspecified Episodic EDITH KARIE DO chest pain (16 sources) Other Fibromyalgia Episodic LAZARO connective FENECH DO tissue disease (4 sources) Other female Other specified abnormal uterine Chronic LAZARO genital and vaginal bleeding FENECH DO disorders (7 sources) Other female Abnormal uterine bleeding Chronic MA KAYLEY SULTANAON genital Work Phone: disorders [phone] (3 sources) 50 Other female Dysfunctional uterine bleeding Chronic WINSTON SERG genital Work Phone: disorders [phone] (1 source) 50 Other Dysphagia, unspecified Episodic WINSTON ULRICH gastrointest MD inal disorders (8 sources) Other Body mass index (BMI) 38.0-38.9, Chronic LAZARO nutritional; adult FENECH DO endocrine; and metabolic disorders (3 sources) Other Morbid (severe) obesity due to Chronic LAZARO nutritional; excess calories FENECH DO endocrine; and metabolic disorders (3 sources) Other Body mass index (BMI) 39.0-39.9, Chronic LAZARO nutritional; adult FENECH DO endocrine; and metabolic disorders (4 sources) Other Obesity, unspecified Chronic LAZARO nutritional; FENECH DO endocrine; and metabolic disorders (4 sources) Ovarian cyst Unspecified ovarian cyst, left side Episodic LAZARO (12 sources) ; Translations: [FOLLICULAR CYST OF FENECH DO RIGHT OVARY] Residual Acquired absence of other organs Episodic LAZARO codes; FENECH DO unclassified (4 sources) Residual Family history of diabetes mellitus Episodic LAZARO codes; FENECH DO unclassified (4 sources) Residual Family history of diseases of the Episodic LAZARO codes; blood and blood-forming organs and FENECH DO unclassified certain disorders involving the (4 sources) immune mechanism Residual Family history of ischemic heart Episodic LAZARO codes; disease and other diseases of the F ENECH DO unclassified circulatory system (4 sources) Residual Personal history of other specified Episodic LAZARO codes; conditions FENECH DO unclassified (4 sources) Screening Personal history of nicotine Episodic LAZARO and history dependence FENECH DO of mental health and substance abuse codes (7 sources) Past or Other Problems Problem Problem Date Last Documented Episodic/Chr Provider Classificati Recorded Date onic on Appendicitis Acute appendicitis without mention Episodic TAKAAKI KIDO and other of peritonitis appendiceal conditions (8 sources) Biliary Calculus of gallbladder with acute Episodic JEFFERY tract and chronic cholecystitis without O DGERS disease obstruction ; Translations: (24 sources) [Calculus of gallbladder wi th acute cholecystitis without obstruction] Genitourinar Dysuria Episodic WINSTON ULRICH y symptoms MD and ill-defined conditions (10 sources) Other lower Painful respiration Episodic EDITH PIERRE O DO respiratory disease (8 sources) Procedures The data below is from unstructured sourcesNo known history of procedures.No procedure information available.No procedure i nformation available.No procedure information available.No procedure information available. Results Test Name Value Interpreta Reference Facilit Date tion Range y Time laboratory on 2020-01-12 Coronavirus Ab Qn Negative Invalid Negative PENDING 01-11 (S) Interpreta LOCATIO 020 tion Code N [facility] 04:40-0 (29149) 400 wbc auto (bld) [#/vol] on 2019-04-08 WBC (Bld) [#/Vol] 6.1 10*3/uL 4.3-11.0 [facility] 04-08-2 on [address] 14:40-0 [facility] ([id number]) rbc auto (bld) [#/vol] on 2019-04-08 RBC (Bld) [#/Vol] 4.42 10*6/uL 4.35-5.85 [facility] 04-08- 2 on [address] 14:40-0 [facility] 400 l (03897) platelets auto (bld) [#/vol] on 2019-04-08 Platelets (Bld) 209 10*3/uL 130-400 [facility] 04-08-2 [#/Vol] on [address] 14:40-0 [facility] (72701) platelet mean volume auto (bld) [entitic vol] on 2019-04-08 Platelet mean volume 10.3 fL 7.4-10.4 [facility] 04-08 -2 (Bld) [Entitic vol] on [address] 14:40-0 [facility] (61600) neutrophils/100 wbc auto (bld) on 2019-04-08 Neutrophils/100 WBC 64 % 42-75 [facility] 04-08- 2 (Bld) on [address] 14:40-0 [facility] ([id number]) neutrophils auto (bld) [#/vol] on 2019-04-08 Neutrophils (Bld) 3.9 10*3/uL 1.8-7.8 [facility] 2 [#/Vol] on [address] 14:40-0 [facility] (09796) mrsa isol org specific cx ql (unsp spec) on 2019-04-08 MRSA isol Org MRSA not isolated [facility] specific cx Ql (Unsp on Via 019 spec) Sara 14:40-0 [facility] (50918) monocytes/100 wbc (bld) on 2019-04-08 Monocytes/100 WBC 7 % 0-12 [facility] (Bld) on [address] 14:40-0 [facility] (82015) monocytes auto (bld) [#/vol] on 2019-04-08 Monocytes (Bld) 0.4 10*3/uL 0.0-1.0 [facility] [#/Vol] on [address] 14:40-0 [facility] (38347) mcv auto (rbc) [entitic vol] on 2019-04-08 MCV (RBC) [Entitic 84 fL 80-99 [facility] 2 vol] on [address] 14:40-0 [facility] (25725) mchc auto (rbc) [mass/vol] on 2019-04-08 MCHC (RBC) 33 g/dL 32-36 [facility] [Mass/Vol] on [address] 14:40-0 [facility] (55231) mch auto (rbc) [entitic mass] on 2019-04-08 MCH (RBC) [Entitic 28 pg 25-34 [facility] mass] on [address] 14:40-0 [facility] (78663) lymphocytes/100 wbc auto (bld) on 2019-04-08 Lymphocytes/100 WBC 27 % 12-44 [facility] 2 (Bld) on [address] 14:40-0 [facility] ([id number]) lymphocytes auto (bld) [#/vol] on 2019-04-08 Lymphocytes (Bld) 1.6 10*3/uL 1.0-4.0 [facility] 10-2 [#/Vol] on [address] 14:40-0 [facility] 400 [facility] (92384) hemoglobin (bldv) [mass/vol] on 2019-04-08 Hemoglobin (Bld) 12.3 g/dL 11.5-16.0 [facility] 10-2 [Mass/Vol] on [address] 14:40-0 [facility] 400 l ([id number]) hematocrit (bld) [volume fraction] on 2019-04-08 Hematocrit (Bld) 37 % 35-52 [facility] 04-08-2 [Volume fraction] on [address] 14:40-0 [facility] 400 l (99761) erythrocyte distribution width auto (rbc) [ratio] on 2019-04-08 Erythrocyte 13.6 % 10.0-14.5 [facility] 04-08-2 distribution width on Via [address]19 (RBC) [Ratio] Sara 14:40-0 [facility] 400 [facility] (11954) eosinophils/100 wbc auto (bld) on 2019-04-08 Eosinophils/100 WBC 2 % 0-10 [facility] 04-08- 2 (Bld) on [address] 14:40-0 [facility] (01397) eosinophils auto (bld) [#/vol] on 2019-04-08 Eosinophils (Bld) 0.1 10*3/uL 0.0-0.3 [facility] 04-08-2 [#/Vol] on [address] 14:40-0 [facility] (01152) basophils/100 wbc auto (bld) on 2019-04-08 Basophils/100 WBC 0 % 0-10 [facility] 04-08-2 (Bld) on [address] 14:40-0 [facility] (65048) basophils auto (bld) [#/vol] on 2019-04-08 Basophils (Bld) 0.0 10*3/uL 0.0-0.1 [facility] 04-08-2 [#/Vol] on [address] 14:40-0 [facility] 400 l (55487) Social History Date Type Detail Facility Start: Tobacco smoking status NHIS Ex-smoker (finding ) [place] [facility] 04-08-2019 [facility] ([id number]) Start: Former Smoker [place] [facility] 04-08-2019 [facility] ([id number]) Start: Denies Use [place] [facility] 04-30-2015 [facility] ([id number]) Start: No [place] [facility] 04-29-2015 [facility] ([id number]) Start: Sex Assigned At Female [facility] 1970 [facility] ([id number]) Vital Signs The data below is from unstructured sources Vital Response Date/Time Temperature (Fahrenheit) 97.2 degree s F (97.6 - 99.5) 04/30/2015 1:50pm Temperature (Calculated Celsius) 36. 72252 degrees C (36.4 - 37.5) 04/30/2015 1:00pm Temperature Source Temporal 04/30/2015 1:50pm Pulse Rate (adult) 75 bpm (60 - 90) 04/30/2015 1:50pm Respiratory Rate 18 bpm (12 - 24) 04/30/2015 1:50pm O2 Sat by Pulse Oximetry 97 % (88 - 100) 04/30/2015 1:50pm Blood Pressure 115/74 mm Hg 04/30/2015 1:50pm Blood Pressure Mean 108 mm Hg 04/29/2015 9:00am Pain Pain Intensity 3 2014 1:00pm Height (Feet) 5 feet 7:08am Height (Inches) 2.00 inches 04/30/2015 7:08am Height (Calculated Centimeters) 157. 475819 cm 04/30/2015 7:08am Weight (Pounds) 220 pounds 04/30/2015 7:08am Weight (Ounces) 0.0 oz 1 7:08am Weight (Calculated Grams) 97830.322 gm 04/30/2015 7:08am Weight (Calculated Kilograms) 99.790 322 kilograms 04/30/2015 7:08am Calculated BMI 36.61 7:08am Vital Response Date/Time Temperature (Fahrenheit) 97.4 degree s F (97.6 - 99.5) 04/29/2015 9:00am Temperature (Calculated Celsius) 36. 05585 degrees C (36.4 - 37.5) 04/29/2015 9:00am Temperature Source Temporal 04/29/2015 9:00am Pulse Rate (adult) 80 bpm (60 - 90) 04/29/2015 9:00am Respiratory Rate 20 bpm (12 - 24) 04/29/2015 9:00am O2 Sat by Pulse Oximetry 100 % (88 - 100) 04/29/2015 9:00am Blood Pressure 136/94 mm Hg 04/29/2015 9:00am Blood Pressure Mean 108 mm Hg 04/29/2015 9:00am Pain Pain Intensity 2 2014 10:50am Height (Feet) 5 feet 9:00am Height (Inches) 2 inches 04/29/2015 9:00am Height (Calculated Centimeters) 157. 117453 cm 04/29/2015 9:00am Weight (Pounds) 220 pounds 04/29/2015 9:00am Weight (Calculated Kilograms) 99.790 322 kilograms 04/29/2015 9:00am Calculated BMI 40.23 9:00am Vital Reading Result Col lection Date/Time Vital Reading Result Col lection Date/Time Functional Status Date Assessment Result Facility 04-15-2019 Functional status Pasero Opioid-induced [facility] Sedation Scale (POSS) [facility] ([id number]) and alert Mental Status Date Assessment Result Facility 04-14-2019 Cognitive function Understands Concepts [facility] ([id number]) Evaluation note Note Date & Note Facility Type Evaluation No Assessments Information Available A scension Via note [facility] ([id number]) Advance Directives Directive Response Recor ded Date/Time Advance Directives No 7:08am Health Care Power of Cotton Baler No 04/30/15 7:08am Organ Donor Yes 04/30/15 7:08am Resuscitation Status Full Code 04/30/15 7:08am Directive Response Recor ded Date/Time Advance Directives No 9:00am Health Care Power of Cotton Baler No 04/29/15 9:00am Organ Donor Yes 04/29/15 9:00am Resuscitation Status Full Code 04/29/15 9:00am Advance Directive Response Recorded Date/Time Advance Directives No Oc tober 1st, 2019 11:24am Health Care Power of Cotton Baler No April 08, 2019 11:24am Organ Donor Yes November 10:53am Resuscitation Status Full Code April 08, 2019 11:24am Advance Directive Response Recorded Date/Time Advance Directives No Oc tober 2018 6:25am Health Care Power of Cotton Baler No April 14, 2019 6:25am Organ Donor Yes April 14, 2019 6:25am Resuscitation Status Full Code April 14, 2019 6:25am Discharge Instructions No hospital discharge instructions. Additional Instructions Patient Instructions Physician Instructions New, Converted or Re-Newed RX: RX on Chart Additional Follow Up: Yes Activity: Activity as Tolerated Driving Instructions: No Driving for 1 Week NO SMOKING: NO SMOKING Nothing Inside Vagina: No Douching, No [place], No Tampons Discharge Diet: No Restrictions Symptoms to Report to : Pain Increased, Fever Over 101 Degrees F, Vaginal Bleeding Increase For Any Problems or Questions: Contact Your Physician Infection Signs and Symptoms: Foul Odor of Wound, Increased Drainage, Skin Itchy or Has a Rash, Increased Swelling, Temperature Above 101 F Operative Area Clean and Dry: Keep Incision Clean/Dry Stitches/[place]/Dermabond: Dermabond Bathing Instructions: Shower Additional Source Comments This clinical document has been generated using iNEWiT software that has been certified by the Office of the National Coordinator for Health Information Technology (ONC 15.99.04.3023.Diam.31.00.0.591645) and the National Committee for Jigsawyer (NCQA, as an eMeasure certified technology). FOR RECORDS PERTAINING TO PATIENTS WHO ARE OR HAVE BEEN ENROLLED IN A CHEMICAL D EPENDENCY/SUBSTANCE ABUSE PROGRAM, SOME INFORMATION MAY BE OMITTED. This clinica l summary was aggregated from multiple sources. Caution should be exercised in using it in the provision of clinical care. This summary normalizes information from multiple sources, and as a consequence, information in this document may ma terially change the coding, format and clinical context of patient data. In lauren tion, data may be omitted in some cases. CLINICAL DECISIONS SHOULD BE BASED ON T HE PRIMARY CLINICAL RECORDS. [employer] provides no warranty or guara ntee of the accuracy or completeness of information in this document.The followi ng information is based on time limited clinical information
--- OUTSIDE RECORDS SUMMARY | 2020-01-15 07:05 | XMS REPORT | Continuity of Care Document ---
Author Organization Unknown Address Unknown Phone Unavailable Allergies Active Description Code Type Severity Reaction Onset Reported/Identified Relationship to Patient Clinical Status Yes Tetanus Vaccines Toxoid [id number] Drug Allergy Unknown N/A 01/18/2015 Yes Tetanus Vaccines and Toxoid [id number] Drug Allergy Unknown N/A 01/18/2015 Yes Tetanus Vaccines and Toxoid [id number] Drug Allergy Severe ANAPHYLAXSIS 2018 Yes codeine [id number] Drug Allergy Mild BAD DREAMS 04/14/2019 Medications There is no data. Problems Date Dx Coded Attending Type Code Diagnosis Diagnosed By 10/07/2011 Ot 540.9 ACUT E APPENDICITIS NOS 03/22/2012 Ot 327.23 OBS TRUCTIVE SLEEP APNEA (ADULT) (PEDIATR 03/22/2012 Ot 327.51 PER IODIC LIMB MOVEMENT DISORDER 08/16/2012 Ot 873.0 OPEN WOUND OF SCALP 08/16/2012 Ot E000.0 CIV HEMANT ACTIVITY DONE FOR INCOME OR PAY 08/16/2012 Ot E849.7 ACC ID IN RESIDENT INSTIT 08/16/2012 Ot E917.9 STR UCK BY OBJ/PERSON NEC 08/20/2012 Ot 276.8 HYPO POTASSEMIA 08/20/2012 Ot 307.81 TEN BONNIE HEADACHE 08/20/2012 Ot 850.0 CONC USSION W/O COMA 08/20/2012 Ot 959.01 HEA D INJURY, NOS 08/20/2012 Ot E000.0 CIV HEMANT ACTIVITY DONE FOR INCOME OR PAY 08/20/2012 Ot E849.7 ACC ID IN RESIDENT INSTIT 08/20/2012 Ot E917.9 STR UCK BY OBJ/PERSON NEC 08/23/2012 Ot V58.32 ENC OUNTER FOR REMOVAL OF SUTURES 01/18/2015 Ot 277.7 [...] Ot E917.9 01/26/2015 WINSTON ULRICH MD Ot 553. 3 DIAPHRAGMATIC HERNIA 01/26/2015 WINSTON ULRICH MD Ot 787. 20 DYSPHAGIA, UNSPECIFIED 01/27/2015 Ot 277.7 01/27/2015 Ot 333.94 01/27/2015 Ot 719.40 01/27/2015 Ot 780.79 01/27/2015 Ot 620.2 01/27/2015 Ot V76.12 01/27/2015 Ot 346.90 01/27/2015 Ot 780.4 01/27/2015 Ot 781.2 01/27/2015 Ot 959.01 01/27/2015 Ot E000.0 01/27/2015 Ot E849.7 01/27/2015 Ot E917.9 01/27/2015 SERG HALL, WINSTON Cerrato Ot V72. 84 04/13/2015 SERG HALL, WINSTON Cerrato Ot 786. 50 04/13/2015 SERG HALL, WINSTON Cerrato Ot 787. 02 04/13/2015 WINSTON ULRICH MD Ot 789. 06 04/29/2015 Ot 277.7 04/29/2015 Ot 333.94 04/29/2015 Ot 719.40 04/29/2015 Ot 780.79 04/29/2015 Ot 620.2 04/29/2015 Ot V76.12 04/29/2015 Ot 346.90 04/29/2015 Ot 780.4 04/29/2015 Ot 781.2 04/29/2015 Ot 959.01 04/29/2015 Ot E000.0 04/29/2015 Ot E849.7 04/29/2015 Ot E917.9 04/29/2015 WINSTON ULRICH MD Ot V72. 84 04/29/2015 WINSTON ULRICH MD Ot 786. 50 04/29/2015 WINSTON ULRICH MD Ot 787. 02 04/29/2015 WINSTON ULRICH MD Ot 789. 06 04/29/2015 COLETTE HALL, JEFFERY Benavides Ot K80.00 CALCULUS OF GALLBLADDER W ACUTE CHOLECYS 04/29/2015 Ot 277.7 04/29/2015 Ot 333.94 04/29/2015 Ot 719.40 04/29/2015 Ot 780.79 04/29/2015 Ot 620.2 04/29/2015 Ot V76.12 04/29/2015 Ot 346.90 04/29/2015 Ot 780.4 04/29/2015 Ot 781.2 04/29/2015 Ot 959.01 04/29/2015 Ot E000.0 04/29/2015 Ot E849.7 04/29/2015 Ot E917.9 04/29/2015 WINSTON ULRICH MD Ot V72. 84 04/29/2015 WINSTON ULRICH MD Ot 786. 50 04/29/2015 WINSTON ULRICH MD Ot 787. 02 04/29/2015 WINSTON ULRICH MD Ot 789. 06 04/29/2015 Ot 277.7 04/29/2015 Ot 333.94 04/29/2015 Ot 719.40 04/29/2015 Ot 780.79 04/29/2015 Ot 620.2 04/29/2015 Ot V76.12 04/29/2015 Ot 346.90 04/29/2015 Ot 780.4 04/29/2015 Ot 781.2 04/29/2015 Ot 959.01 04/29/2015 Ot E000.0 04/29/2015 Ot E849.7 04/29/2015 Ot E917.9 04/29/2015 WINSTON ULRICH MD Ot V72. 84 04/29/2015 WINSTON ULRICH MD Ot 786. 50 04/29/2015 WINSTON ULRICH MD Ot 787. 02 04/29/2015 WINSTON ULRICH MD Ot 789. 06 04/29/2015 Ot 277.7 04/29/2015 Ot 333.94 04/29/2015 Ot 719.40 04/29/2015 Ot 780.79 04/29/2015 Ot 620.2 04/29/2015 Ot V76.12 04/29/2015 Ot 346.90 04/29/2015 Ot 780.4 04/29/2015 Ot 781.2 04/29/2015 Ot 959.01 04/29/2015 Ot E000.0 04/29/2015 Ot E849.7 04/29/2015 Ot E917.9 04/29/2015 WINSTON ULRICH MD Ot V72. 84 04/29/2015 WINSTON ULRICH MD Ot 786. 50 04/29/2015 WINSTON ULRICH MD Ot 787. 02 04/29/2015 WINSTON ULRICH MD Ot 789. 06 04/30/2015 SHAQUILLE NEWMAN DO Ot K80. 12 CALCULUS OF GB W ACUTE AND CHRONIC ELIS 05/20/2015 Ot 277.7 05/20/2015 Ot 333.94 05/20/2015 Ot 719.40 05/20/2015 Ot 780.79 05/20/2015 Ot 620.2 05/20/2015 Ot V76.12 05/20/2015 Ot 346.90 05/20/2015 Ot 780.4 05/20/2015 Ot 781.2 05/20/2015 Ot 959.01 05/20/2015 Ot E000.0 05/20/2015 Ot E849.7 05/20/2015 Ot E917.9 05/20/2015 WINSTON ULRICH MD Ot V72. 84 05/20/2015 WINSTON ULRICH MD Ot 786. 50 05/20/2015 WINSTON ULRICH MD Ot 787. 02 05/20/2015 WINSTON ULRICH MD Ot 789. 06 06/30/2015 WINSTON ULRICH MD Ot 786. 50 06/30/2015 WINSTON ULRICH MD Ot 787. 02 06/30/2015 WINSTON ULRICH MD Ot 789. 06 07/08/2015 WINSTON ULRICH MD Ot 786. 50 07/08/2015 WINSTON ULRICH MD Ot 787. 02 07/08/2015 WINSTON ULRICH MD Ot 789. 06 10/28/2015 Ot 277.7 DYSM ETABOLIC SYNDROME X 10/28/2015 Ot 333.94 RES TLESS LEGS SYNDROME 10/28/2015 Ot 719.40 MARTY NT PAIN-UNSPEC 10/28/2015 Ot 780.79 OTH MALAISE FATIGUE 10/28/2015 Ot 620.2 OVAR MAIRA CYST NEC/NOS 10/28/2015 Ot V76.12 OTH SCREEN MAMMO- MALIGN NEOPLASM OF BROOKS 10/28/2015 Ot 346.90 ORION SHERYL UNSPECIFIED W/O INTRACT MGRN W/ 10/28/2015 Ot 780.4 DIZZ INESS AND GIDDINESS 10/28/2015 Ot 781.2 ABNO RMALITY OF GAIT 10/28/2015 Ot 959.01 HEA D INJURY, NOS 10/28/2015 Ot E000.0 CIV HEMANT ACTIVITY DONE FOR INCOME OR PAY 10/28/2015 Ot E849.7 ACC ID IN RESIDENT INSTIT 10/28/2015 Ot E917.9 STR UCK BY OBJ/PERSON NEC 10/28/2015 WINSTON ULRICH MD Ot V72. 84 EXAM PRE-OPERATIVE NOS 10/28/2015 SERG HALL, WINSTON Cerrato Ot 786. 50 CHEST PAIN NOS 10/28/2015 WINSTON ULRICH MD Ot 787. 02 NAUSEA ALONE 10/28/2015 WINSTON ULRICH MD Ot 789. 06 ABDOMINAL PAIN, EPIGASTRIC 08/22/2017 WINSTON ULRICH MD Ot R10. 84 GENERALIZED ABDOMINAL PAIN 08/22/2017 WINSTON ULRICH MD Ot R30. 0 DYSURIA 09/05/2017 WINSTON ULRICH MD Ot R10. 84 GENERALIZED ABDOMINAL PAIN 09/05/2017 SERG HALL, WINSTON Cerrato Ot R30. 0 DYSURIA 06/13/2018 SERG HALL, WINSTON Cerrato Ot V72. 84 EXAM PRE-OPERATIVE NOS 06/13/2018 SERG HALL, WINSTON Cerrato Ot 786. 50 CHEST PAIN NOS 06/13/2018 SERG HALL, WINSTON Cerrato Ot 787. 02 NAUSEA ALONE 06/13/2018 SERG HALL, WINSTON Cerrato Ot 789. 06 ABDOMINAL PAIN, EPIGASTRIC 06/13/2018 SERG HALL, WINSTON Cerrato Ot R10. 84 GENERALIZED ABDOMINAL PAIN 06/13/2018 SERG HALL, WINSTON Cerrato Ot R30. 0 DYSURIA 06/13/2018 SERG HALL, WINSTON Cerrato Ot V72. 84 EXAM PRE-OPERATIVE NOS 06/13/2018 SERG HALL, WINSTON Cerrato Ot 786. 50 CHEST PAIN NOS 06/13/2018 SERG HALL, WINSTON Cerrato Ot 787. 02 NAUSEA ALONE 06/13/2018 SERG HALL, WINSTON Cerrato Ot 789. 06 ABDOMINAL PAIN, EPIGASTRIC 06/13/2018 SERG HALL, WINSTON Cerrato Ot R10. 84 GENERALIZED ABDOMINAL PAIN 06/13/2018 SERG HALL, WINSTON Cerrato Ot R30. 0 DYSURIA 11/11/2018 SERG HALL, WINSTON Cerrato Ot V72. 84 EXAM PRE-OPERATIVE NOS 11/11/2018 SERG HALL, WINSTON Cerrato Ot 786. 50 CHEST PAIN NOS 11/11/2018 SERG HALL, WINSTON Cerrato Ot 787. 02 NAUSEA ALONE 11/11/2018 SERG HALL, WINSTON Cerrato Ot 789. 06 ABDOMINAL PAIN, EPIGASTRIC 11/11/2018 SERG HALL, WINSTON Cerrato Ot R10. 84 GENERALIZED ABDOMINAL PAIN 11/11/2018 SERG HALL, WINSTON Cerrato Ot R30. 0 DYSURIA 11/11/2018 SERG HALL, WINSTON Cerrato Ot V72. 84 EXAM PRE-OPERATIVE NOS 11/11/2018 SERG HALL, WINSTON Cerrato Ot 786. 50 CHEST PAIN NOS 11/11/2018 SERG HALL, WINSTON Cerrato Ot 787. 02 NAUSEA ALONE 11/11/2018 SERG HALL, WINSTON Cerrato Ot 789. 06 ABDOMINAL PAIN, EPIGASTRIC 11/11/2018 SERG HALL, WINSTON Cerrato Ot R10. 84 GENERALIZED ABDOMINAL PAIN 11/11/2018 SERG HALL, WINSTON Cerrato Ot R30. 0 DYSURIA 11/12/2018 SERG HALL, WINSTON Cerrato Ot V72. 84 EXAM PRE-OPERATIVE NOS 11/12/2018 SERG HALL, WINSTON Cerrato Ot 786. 50 CHEST PAIN NOS 11/12/2018 SERG HALL, WINSTON Cerrato Ot 787. 02 NAUSEA ALONE 11/12/2018 SERG HALL, WINSTON Cerrato Ot 789. 06 ABDOMINAL PAIN, EPIGASTRIC 11/12/2018 SERG HALL, WINSTON Cerrato Ot R10. 84 GENERALIZED ABDOMINAL PAIN 11/12/2018 SERG HALL, WINSTON Cerrato Ot R30. 0 DYSURIA 11/14/2018 FENECH DO, LAZARO S Ot N83.202 UNSPECIFIED OVARIAN CYST, LEFT SIDE 11/14/2018 FENECH DO, LAZARO S Ot N95.0 POSTMENOPAUSAL BLEEDING 11/28/2018 FENECH DO, LAZARO S Ot Z01.818 ENCOUNTER FOR OTHER PREPROCEDURAL EXAMIN 11/29/2018 FENECH DO, LAZARO S Ot Z01.818 ENCOUNTER FOR OTHER PREPROCEDURAL EXAMIN 12/05/2018 FENECH DO, LAZARO S Ot E66.01 MORBID (SEVERE) OBESITY DUE TO EXCESS CA 12/05/2018 FENECH DO, LAZARO S Ot K21.9 GASTRO-ESOPHAGEAL REFLUX DISEASE WITHOUT 12/05/2018 FENECH DO, LAZARO S Ot N95.0 POSTMENOPAUSAL BLEEDING 12/05/2018 FENECH DO, LAZARO S Ot Z68.38 BODY MASS INDEX (BMI) 38.0-38.9, ADULT 12/05/2018 FENECH DO, LAZARO S Ot Z87.891 PERSONAL HISTORY OF NICOTINE DEPENDENCE 12/05/2018 FENECH DO, LAZARO S Ot N83.202 UNSPECIFIED OVARIAN CYST, LEFT SIDE 12/05/2018 FENECH DO, LAZARO S Ot N95.0 POSTMENOPAUSAL BLEEDING 12/10/2018 FENECH DO, LAZARO S Ot E66.01 MORBID (SEVERE) OBESITY DUE TO EXCESS CA 12/10/2018 FENECH DO, LAZARO S Ot K21.9 GASTRO-ESOPHAGEAL REFLUX DISEASE WITHOUT 12/10/2018 FENECH DO, LAZARO S Ot N95.0 POSTMENOPAUSAL BLEEDING 12/10/2018 FENECH DO, LAZARO S Ot Z68.38 BODY MASS INDEX (BMI) 38.0-38.9, ADULT 12/10/2018 FENECH DO, LAZARO S Ot Z87.891 PERSONAL HISTORY OF NICOTINE DEPENDENCE 04/08/2019 FENECH DO, LAZARO S Ot N93.8 OTHER SPECIFIED ABNORMAL UTERINE AND VAG 04/08/2019 FENECH DO, LAZARO S Ot Z01.812 ENCOUNTER FOR PREPROCEDURAL LABORATORY E 04/10/2019 LAZARO ALMANZAR DO Ot N93.8 OTHER SPECIFIED ABNORMAL UTERINE AND VAG 04/10/2019 LAZARO ALMANZAR DO, Ot Z01.812 ENCOUNTER FOR PREPROCEDURAL LABORATORY E 04/15/2019 LAZARO ALMANZAR DO, Ot D64.9 ANEMIA, UNSPECIFIED 04/15/2019 LAZARO ALMANZAR DO Ot E66.9 OBESITY, UNSPECIFIED 04/15/2019 LAZARO ALMANZAR DO Ot F41.9 ANXIETY DISORDER, UNSPECIFIED 04/15/2019 LAZARO ALMANZAR DO, Ot G43.909 MIGRAINE, UNSP, NOT INTRACTABLE, WITHOUT 04/15/2019 LAZARO ALMANZAR DO Ot K21.9 GASTRO-ESOPHAGEAL REFLUX DISEASE WITHOUT 04/15/2019 LAZARO ALMANZAR DO Ot M79.7 FIBROMYALGIA 04/15/2019 LAZARO ALMANZAR DO Ot N73.6 FEMALE PELVIC PERITONEAL ADHESIONS (POST 04/15/2019 LAZARO ALMANZAR DO, Ot N80.0 ENDOMETRIOSIS OF UTERUS 04/15/2019 LAZARO ALMANZAR DO Ot N83.01 FOLLICULAR CYST OF RIGHT OVARY 04/15/2019 LAZARO ALMANZAR DO Ot N83.202 UNSPECIFIED OVARIAN CYST, LEFT SIDE 04/15/2019 LAZARO ALMANZAR DO, Ot N93.8 OTHER SPECIFIED ABNORMAL UTERINE AND VAG 04/15/2019 LAZARO ALMANZAR DO Ot Z68.39 BODY MASS INDEX (BMI) 39.0-39.9, ADULT 04/15/2019 LAZARO ALMANZAR DO Ot Z82.49 FAMILY HX OF ISCHEM HEART DIS AND OTH DI 04/15/2019 LAZARO ALMANZAR DO, Ot Z83.2 FAMILY HISTORY OF DIS OF THE BLD/BLD-FOR 04/15/2019 LAZARO ALMANZAR DO, Ot Z83.3 FAMILY HISTORY OF DIABETES MELLITUS 04/15/2019 LAZARO ALMANZAR DO, Ot Z87.891 PERSONAL HISTORY OF NICOTINE DEPENDENCE 04/15/2019 LAZARO ALMANZAR DO, Ot Z87.898 PERSONAL HISTORY OF OTHER SPECIFIED COND 04/15/2019 LAZARO ALMANZAR DO, Ot Z88.5 ALLERGY STATUS TO NARCOTIC AGENT STATUS 04/15/2019 LAZARO ALMANZAR DO, Ot Z88.7 ALLERGY STATUS TO SERUM AND VACCINE STAT 04/15/2019 LAZARO ALMANZAR DO, Ot Z90.89 ACQUIRED ABSENCE OF OTHER ORGANS 04/15/2019 LAZARO ALMANZAR DO, Ot Z98.51 TUBAL LIGATION STATUS 04/23/2019 LAZARO ALMANZAR DO, Ot D64.9 ANEMIA, UNSPECIFIED 04/23/2019 LAZARO ALMANZAR DO, Ot E66.9 OBESITY, UNSPECIFIED 04/23/2019 LAZARO ALMANZAR DO, Ot F41.9 ANXIETY DISORDER, UNSPECIFIED 04/23/2019 LAZARO ALMANZAR DO, Ot G43.909 MIGRAINE, UNSP, NOT INTRACTABLE, WITHOUT 04/23/2019 LAZARO ALMANZAR DO Ot K21.9 GASTRO-ESOPHAGEAL REFLUX DISEASE WITHOUT 04/23/2019 LAZARO ALMANZAR DO Ot M79.7 FIBROMYALGIA 04/23/2019 LAZARO ALMANZAR DO Ot N73.6 FEMALE PELVIC PERITONEAL ADHESIONS (POST 04/23/2019 LAZARO ALMANZAR DO Ot N80.0 ENDOMETRIOSIS OF UTERUS 04/23/2019 LAZARO ALMANZAR DO, Ot N83.01 FOLLICULAR CYST OF RIGHT OVARY 04/23/2019 LAZARO ALMANZAR DO, Ot N83.202 UNSPECIFIED OVARIAN CYST, LEFT SIDE 04/23/2019 LAZARO ALMANZAR DO Ot N93.8 OTHER SPECIFIED ABNORMAL UTERINE AND VAG 04/23/2019 LAZARO ALMANZAR DO Ot Z68.39 BODY MASS INDEX (BMI) 39.0-39.9, ADULT 04/23/2019 LAZARO ALMANZAR DO, Ot Z82.49 FAMILY HX OF ISCHEM HEART DIS AND OTH DI 04/23/2019 LAZARO ALMANZAR DO, Ot Z83.2 FAMILY HISTORY OF DIS OF THE BLD/BLD-FOR 04/23/2019 LAZARO ALMANZAR DO Ot Z83.3 FAMILY HISTORY OF DIABETES MELLITUS 04/23/2019 LAZARO ALMANZAR DO, Ot Z87.891 PERSONAL HISTORY OF NICOTINE DEPENDENCE 04/23/2019 LAZARO ALMANZAR DO, Ot Z87.898 PERSONAL HISTORY OF OTHER SPECIFIED COND 04/23/2019 LAZARO ALMANZAR DO, Ot Z88.5 ALLERGY STATUS TO NARCOTIC AGENT STATUS 04/23/2019 LAZARO ALMANZAR DO, Ot Z88.7 ALLERGY STATUS TO SERUM AND VACCINE STAT 04/23/2019 LAZARO ALMANZAR DO, Ot Z90.89 ACQUIRED ABSENCE OF OTHER ORGANS 04/23/2019 LAZARO ALMANZAR DO, Ot Z98.51 TUBAL LIGATION STATUS 04/23/2019 LAZARO ALMANZAR DO, Ot D64.9 ANEMIA, UNSPECIFIED 04/23/2019 LAZARO ALMANZAR DO Ot E66.9 OBESITY, UNSPECIFIED 04/23/2019 LAZARO ALMANZAR DO, Ot F41.9 ANXIETY DISORDER, UNSPECIFIED 04/23/2019 LAZARO ALMANZAR DO, Ot G43.909 MIGRAINE, UNSP, NOT INTRACTABLE, WITHOUT 04/23/2019 LAZARO ALMANZAR DO Ot K21.9 GASTRO-ESOPHAGEAL REFLUX DISEASE WITHOUT 04/23/2019 LAZARO ALMANZAR DO Ot M79.7 FIBROMYALGIA 04/23/2019 LAZARO ALMANZAR DO Ot N73.6 FEMALE PELVIC PERITONEAL ADHESIONS (POST 04/23/2019 ALZARO ALMANZAR DO, Ot N80.0 ENDOMETRIOSIS OF UTERUS 04/23/2019 LAZARO ALMANZAR DO, Ot N83.01 FOLLICULAR CYST OF RIGHT OVARY 04/23/2019 LAZARO ALMANZAR DO, Ot N83.202 UNSPECIFIED OVARIAN CYST, LEFT SIDE 04/23/2019 LAZARO ALMANZAR DO, Ot N93.8 OTHER SPECIFIED ABNORMAL UTERINE AND VAG 04/23/2019 LAZARO ALMANZAR DO, Ot Z68.39 BODY MASS INDEX (BMI) 39.0-39.9, ADULT 04/23/2019 LAZARO ALMANZAR DO, Ot Z82.49 FAMILY HX OF ISCHEM HEART DIS AND OTH DI 04/23/2019 LAZARO ALMANZAR DO, Ot Z83.2 FAMILY HISTORY OF DIS OF THE BLD/BLD-FOR 04/23/2019 LAZARO ALMANZAR DO, Ot Z83.3 FAMILY HISTORY OF DIABETES MELLITUS 04/23/2019 LAZARO ALMANZAR DO, Ot Z87.891 PERSONAL HISTORY OF NICOTINE DEPENDENCE 04/23/2019 LAZARO ALMANZAR DO, Ot Z87.898 PERSONAL HISTORY OF OTHER SPECIFIED COND 04/23/2019 LAZARO ALMANZAR DO, Ot Z88.5 ALLERGY STATUS TO NARCOTIC AGENT STATUS 04/23/2019 LAZARO ALMANZAR DO, Ot Z88.7 ALLERGY STATUS TO SERUM AND VACCINE STAT 04/23/2019 LAZARO ALMANZAR DO Ot Z90.89 ACQUIRED ABSENCE OF OTHER ORGANS 04/23/2019 LAZARO ALMANZAR DO, Ot Z98.51 TUBAL LIGATION STATUS 07/28/2019 SERG HALL, WINSTON Cerrato Ot V72. 84 EXAM PRE-OPERATIVE NOS 07/28/2019 SERG HALL, WINSTON Cerrato Ot 786. 50 CHEST PAIN NOS 07/28/2019 SERG HALL, WINSTON Cerrato Ot 787. 02 NAUSEA ALONE 07/28/2019 WINSTON ULRICH MD Ot 789. 06 ABDOMINAL PAIN, EPIGASTRIC 07/28/2019 WINSTON ULRICH MD Ot R10. 84 GENERALIZED ABDOMINAL PAIN 07/28/2019 WNISTON ULRICH MD Ot R30. 0 DYSURIA 07/28/2019 FENECH DO, LAZARO S Ot N83.202 UNSPECIFIED OVARIAN CYST, LEFT SIDE 07/28/2019 FENECH DO, LAZARO S Ot N95.0 POSTMENOPAUSAL BLEEDING 07/28/2019 SERG HALL, WINSTON Cerrato Ot V72. 84 EXAM PRE-OPERATIVE NOS 07/28/2019 SERG HALL, WINSTON Cerrato Ot 786. 50 CHEST PAIN NOS 07/28/2019 SERG HALL, WINSTON Cerrato Ot 787. 02 NAUSEA ALONE 07/28/2019 WINSTON ULRICH MD Ot 789. 06 ABDOMINAL PAIN, EPIGASTRIC 07/28/2019 WINSTON ULRICH MD Ot R10. 84 GENERALIZED ABDOMINAL PAIN 07/28/2019 WINSTON ULRICH MD Ot R30. 0 DYSURIA 07/28/2019 FENECH DO, LAZARO S Ot N83.202 UNSPECIFIED OVARIAN CYST, LEFT SIDE 07/28/2019 FENECH DO, LAZARO S Ot N95.0 POSTMENOPAUSAL BLEEDING 01/02/2020 WINSTON ULRICH MD Ot V72. 84 EXAM PRE-OPERATIVE NOS 01/02/2020 SERG HLAL, WINSTON Cerrato Ot 786. 50 CHEST PAIN NOS 01/02/2020 WINSTON ULRICH MD Ot 787. 02 NAUSEA ALONE 01/02/2020 WINSTON ULRICH MD Ot 789. 06 ABDOMINAL PAIN, EPIGASTRIC 01/02/2020 WINSTON ULRICH MD Ot R10. 84 GENERALIZED ABDOMINAL PAIN 01/02/2020 WINSTON ULRICH MD Ot R30. 0 DYSURIA 01/02/2020 FENECH DO, LAZARO S Ot N83.202 UNSPECIFIED OVARIAN CYST, LEFT SIDE 01/02/2020 FENECH DO, LAZARO S Ot N95.0 POSTMENOPAUSAL BLEEDING 01/06/2020 WINSTON ULRICH MD Ot Z01.818 ENCOUNTER FOR OTHER PREPROCEDURAL EXAMIN Procedures There is no data. Results Test Result Range Complete urinalysis with reflex to cultu re - 08/20/17 15:50 Urine color determination YELLOW NRG Urine clarity determination CLEAR NR G Urine pH measurement by test strip 6 5-9 Specific gravity of urine by test strip 1.010 1.016-1.022 Urine protein assay by test strip, semi-quantitative NEGATIVE NEGATIVE Urine glucose detection by automated test strip NE GATIVE NEGATIVE Erythrocytes detection in urine sediment by light micr oscopy 5+ NEGATIVE Urine ketones detection by automated test strip NE GATIVE NEGATIVE Urine nitrite detection by test strip NEGATIVE NEGATIVE Urine total bilirubin detection by test strip NEGA TIVE NEGATIVE Urine urobilinogen measurement by automated test strip (mass/volume) NORMAL NORMAL Urine leukocyte esterase detection by dipstick NEG ATIVE NEGATIVE Automated urine sediment erythrocyte cou nt by microscopy (number/high power field) [HPF] NRG Automated urine sediment leukocyte count by microscopy (number/high power field) [HPF] NRG Bacteria detection in urine sediment by light microsco py TRACE NRG Squamous epithelial cells detection in u rine sediment by light microscopy 10-25 NRG Crystals detection in urine sediment by light microsco py NONE NRG Casts detection in urine sediment by light microscopy NONE NRG Mucus detection in urine sediment by light microscopy NEGATIVE NRG Complete urinalysis with reflex to culture NO NRG Methicillin resistant Staphylococcus aur eus (MRSA) screening culture - 12/05/18 09:55 Methicillin resistant Staphylococcus aureus (MRSA) scr eening culture NEG NRG Complete blood count (CBC) with automate d white blood cell (WBC) differential - 12/05/18 10:00 Blood leukocytes automated count (number/volume) 6.4 10*3/uL 4.3-11.0 Blood erythrocytes automated count (number/volume) 4.58 10*6/uL 4.35-5.85 Venous blood hemoglobin measurement (mass/volume) 12.8 g/dL 11.5-16.0 Blood hematocrit (volume fraction) 39 % 35-52 Automated erythrocyte mean corpuscular volume 84 [ foz_us] 80-99 Automated erythrocyte mean corpuscular h emoglobin (mass per erythrocyte) 28 pg 25-34 Automated erythrocyte mean corpuscular h emoglobin concentration measurement (mass/volume) 33 g/dL 32-36 Automated erythrocyte distribution width ratio 14. 2 % 10.0- 14.5 Automated blood platelet count (count/volume) 219 10*3/uL 130-400 Automated blood platelet mean volume measurement 10.7 [foz_us] 7.4-10.4 Automated blood neutrophils/100 leukocytes 55 % 42-75 Automated blood lymphocytes/100 leukocytes 36 % 12-44 Blood monocytes/100 leukocytes 7 % 0-12 Automated blood eosinophils/100 leukocytes 2 % 0-10 Automated blood basophils/100 leukocytes 0 % 0-10 Blood neutrophils automated count (number/volume) 3.5 10*3 1.8-7.8 Blood lymphocytes automated count (number/volume) 2.3 10*3 1.0-4.0 Blood monocytes automated count (number/volume) 0. 4 10*3 0.0-1.0 Automated eosinophil count 0.1 10*3/uL 0 .0-0.3 Automated blood basophil count (count/volume) 0.0 10*3/uL 0.0-0.1 Blood type T Indirect antibody screen pa carrie - 12/05/18 10:00 ABO+Rh group AP NRG Transfusion band number [id number] NRG Blood group antibody screen NEGATIVE NR G Complete blood count (CBC) with automate d white blood cell (WBC) differential - 04/08/19 11:40 Blood leukocytes automated count (number/volume) 6.1 10*3/uL 4.3-11.0 Blood erythrocytes automated count (number/volume) 4.42 10*6/uL 4.35-5.85 Venous blood hemoglobin measurement (mass/volume) 12.3 g/dL 11.5-16.0 Blood hematocrit (volume fraction) 37 % 35-52 Automated erythrocyte mean corpuscular volume 84 [ foz_us] 80-99 Automated erythrocyte mean corpuscular h emoglobin (mass per erythrocyte) 28 pg 25-34 Automated erythrocyte mean corpuscular h emoglobin concentration measurement (mass/volume) 33 g/dL 32-36 Automated erythrocyte distribution width ratio 13. 6 % 10.0- 14.5 Automated blood platelet count (count/volume) 209 10*3/uL 130-400 Automated blood platelet mean volume measurement 10.3 [foz_us] 7.4-10.4 Automated blood neutrophils/100 leukocytes 64 % 42-75 Automated blood lymphocytes/100 leukocytes 27 % 12-44 Blood monocytes/100 leukocytes 7 % 0-12 Automated blood eosinophils/100 leukocytes 2 % 0-10 Automated blood basophils/100 leukocytes 0 % 0-10 Blood neutrophils automated count (number/volume) 3.9 10*3 1.8-7.8 Blood lymphocytes automated count (number/volume) 1.6 10*3 1.0-4.0 Blood monocytes automated count (number/volume) 0. 4 10*3 0.0-1.0 Automated eosinophil count 0.1 10*3/uL 0 .0-0.3 Automated blood basophil count (count/volume) 0.0 10*3/uL 0.0-0.1 Blood type T Indirect antibody screen [facility] - 04/08/19 11:40 WRISTBAND NUMBER [id number] NRG ABO+Rh group AP NRG Blood group antibody screen NEGATIVE NR G Methicillin resistant Staphylococcus aur eus (MRSA) screening culture - 04/08/19 11:40 Methicillin resistant Staphylococcus aureus (MRSA) scr eening culture NEG NRG Blood type T Indirect antibody screen [facility] - 04/14/19 06:20 WRISTBAND NUMBER [id number] NRG ABO+Rh group AP NRG Blood group antibody screen NEGATIVE NR G Coronavirus SARS-CoV-2 SO 2018 0 08:40 Coronavirus Ab [Units/volume] in Serum Negative Negative Encounters ACCT No. Visit Date/Time Discharge Status Pt. Type Provider Facility Loc./Unit Complaint [id number] 01/12/2020 07:15:00 14:17:00 DIS Outpatient WINSTON ULRICH MD [facility] PREOP EPIGASTRIC PAIN [id number] 04/14/2019 05:54:00 09:30:00 DIS Outpatient LAZARO ALMANZAR DO [facility] ABNORMAL UTERINE BLEED ING [id number] 04/08/2019 11:15:00 15:43:00 DIS Outpatient LAZARO ALMANZAR DO [facility] PREOP ABNORMAL UTERINE BLEED ING [id number] 12/05/2018 09:36:00 15:10:00 DIS Outpatient LAZARO ALMANZAR DO [facility] ABNORMAL UTERINE BLEED ING [id number] 11/28/2018 07:43:00 13:30:00 DIS Outpatient LAZARO ALMANZAR DO [facility] PREOP ABNORMAL UTERINE BLEED ING [id number] 11/12/2018 14:02:00 23:59:59 CLS Outpatient LAZARO ALMANZAR DO [facility] RAD POSTMENOPAUSAL BLEEDIN G [id number] 08/21/2017 11:07:00 23:59:59 CLS Preadmit WINSTON ULRICH MD [facility] RAD LOWER ABD PAIN,HEMATURI A [id number] 08/20/2017 15:28:00 23:59:59 CLS Outpatient WINSTON ULRICH MD [facility] LAB [id number] 04/30/2015 06:18:00 13:50:00 DIS Outpatient SHAQUILLE NEWMAN DO [facility] SYMPTOMATIC CHOLELITHIA SIS [id number] 04/29/2015 08:55:00 13:47:00 DIS Emergency JEFFERY ALVARENGA MD [facility] ER ABD PAIN [id number] 03/31/2015 10:07:00 23:59:59 CLS Outpatient WINSTON ULRICH MD [facility] RAD CHEST AND EPIGASTRIC PA IN W/NAUSEA [id number] 01/26/2015 06:40:00 09:40:00 DIS Outpatient WINSTON ULRICH MD [facility] SDC DYSPHAGIA [id number] 01/22/2015 06:46:00 23:59:59 CLS Outpatient WINSTON ULRICH MD [facility] PREOP DYSPHASIA [id number] 01/18/2015 19:05:00 20:16:00 DIS Emergency EDITH TIWARI DO [facility] ER CHEST PAIN [id number] 01/12/2020 07:30:00 P EN Preadmit WINSTON ULRICH MD [facility] ENDO EPIGASTRIC PAIN [id number] 08/27/2012 12:46:00 Document Registration [id number] 08/23/2012 12:32:00 Document Registration [id number] 08/20/2012 10:24:00 Document Registration [id number] 08/15/2012 21:41:00 Document Registration [id number] 03/22/2012 07:30:00 Document Registration [id number] 03/07/2012 10:08:00 Document Registration [id number] 01/19/2012 15:58:00 Document Registration [id number] 10/06/2011 23:06:00 Document Registration
[2020-01-15] MEDS ORDERED: LACTATED RINGERS 1,000 ML IV ONE (07:13)
[2020-01-15] MEDS ORDERED: LACTATED RINGERS 1,000 ML IV STA (07:16)
[2020-01-15] MEDS ORDERED: PROPOFOL INJECTION 0 ML IV ONE (07:21)
[2020-01-15] MEDS ORDERED: MIDAZOLAM 2 MG/2 ML (VERSED) VIAL ONE (07:21)
[2020-01-15] MEDS ORDERED: LIDOCAINE JELLY 2% 6 ML SYRINGE MM PRN (07:30)
[2020-01-15] MEDS ORDERED: HURRICAINE EXT TUBE (BENZOCAINE) XX PRN (07:30)
--- NOTE | 2020-01-15 07:34 | Pre-Op Note & Conscious Sedat ---
Pre-Operative Progress Note H&P Reviewed The H&P was reviewed, patient examined and no changes noted. Date H&P Reviewed: Jan 15, 2020 Time H&P Reviewed: 07:20 Conscious Sedation Pre-Proced ASA Score 2 For ASA 3 and 4: Consider anesthesia and medical clearance. Also, for patients with a history of failed moderate sedation consider anesthesia. Airway Lungs Heart ASA score ASA 1: a normal healthy patient ASA 2: a patient with a mild systemic disease (mid diabetes, controlled hypertension, obesity ASA 3: a patient with a severe systemic disease that limits activity (angina, COPD, prior Myocardial infarction) ASA 4: a patient with an incapacitating disease that is a constant threat to life (CHF, renal failure) ASA 5: a moribund patient not expected to survive 24 hrs. (ruptured aneurysm) ASA 6: a declared brain- patient whose organs are being harvested. For emergent operations, add the letter E after the classification Mallampati Classification Grade 2 Sedation Plan Analgesia, Amnesia, Plan communicated to team members, Discussed options with patient/fam, Discussed risks with patient/fam The patient is an appropriate candidate to undergo the planned procedure, sedation, and anesthesia. The patient immediately re-assessed prior to indication. WINSTON ULRICH MD Jan 15, 2020 07:34
[2020-01-15] MEDS ORDERED: LIDOCAINE JELLY 2% 6 ML SYRINGE ONE (07:41)
[2020-01-15] MEDS ORDERED: HURRICAINE EXT TUBE (BENZOCAINE) ONE (07:42)
[2020-01-15 07:46] VITALS: BP 114/80
[2020-01-15] MEDS ORDERED: PROPOFOL INJECTION 50 ML IV ONE (07:59)
[2020-01-15 08:10] VITALS: BP 121/69
[2020-01-15 08:30] VITALS: BP 110/75
[2020-01-15 08:40] VITALS: BP 110/75
--- NOTE | 2020-01-15 09:00 | OPERATIVE REPORT ---
DATE OF SERVICE: EGD was performed for evaluation of epigastric pain and colonoscopy was performed for screening purposes. DESCRIPTION OF PROCEDURE: The patient was placed in left lateral decubitus position. Prior to performing colonoscopy, digital rectal evaluation was performed. Anal sphincter tone was normal and the perianal reflexes intact. No abnormalities were noted on digital inspection of anal canal or distal rectal vault. The colonoscope was then inserted into the rectum and under direct visualization advanced to cecum. The cecum was identified by identification of the esophagus and the cecal strap. Quality of the prep was reasonable up to the point of the cecum and proximal ascending colon, where a thin film of liquid stool pretty much covered the entire bowel wall. Suctioning and lavage were performed, but there was still enough stool that small polyps may not have been identified. Careful inspection was made on the way out. The remainder of the colon prep was good. FINDINGS: There was no evidence for internal or external hemorrhoids. The rectum was unremarkable. Present in the distal sigmoid colon was diminutive hyperplastic appearing polyp, which was biopsied and ablated. No evidence for diverticular disease was identified. Present in the proximal sigmoid colon was a diminutive adenomatous appearing polyp measuring 3 x 4 mm in size. It was photographed and biopsied and ablated with minimal blood loss. The descending colon, splenic flexure, transverse colon, hepatic flexure, ascending colon and the visualized portions of the cecum were unremarkable. ASSESSMENT: Two small polyps were removed as noted above with an otherwise normal colonoscopy to the cecum with suboptimal prep of the cecum as noted above. The remainder of the prep was reasonable. We then proceeded with EGD evaluation. The patient was placed in the left lateral decubitus position. The endoscope was inserted in the oral cavity and under direct visualization, the esophagus was intubated. The endoscope was passed down the esophagus through the stomach and the second portion of the duodenum. A careful inspection was made as the endoscope was withdrawn. The patient tolerated the procedure well. FINDINGS: The posterior pharynx, arytenoid aperture, true and false vocal folds were unremarkable in appearance. The proximal and mid esophagus were unremarkable. A small hiatal hernia was present with some erythema noted at the Z line without evidence for ulceration. Biopsies were obtained. There was no visible evidence to suggest Machuca's change. The cardia and fundus of the stomach are unremarkable. There are some linear streaking and punctate areas of erythema noted in the antrum. A photograph was obtained. No evidence for ulceration was noted. Biopsy was obtained and submitted for histopathology and Helicobacter evaluation. The pylorus, the pyloric channel, the duodenal bulb and second portion of duodenum were unremarkable with no evidence for duodenitis or ulceration. ASSESSMENT: 1. A small hiatal hernia is present with evidence for nonerosive esophagitis and no evidence to suggest Machuca's change. A biopsy from the Z line is pending. 2. Mild antral gastritis. Biopsy for Helicobacter and histopathology were obtained. The patient was instructed to take omeprazole 20 mg daily for one month. I will see her back in the office in 1 to 2 months with a non-medication reflux management discussed as well. We will await histopathology report on colonoscopy before making future surveillance recommendations in regard to colonoscopy. The patient was advised to abstain from aspirin and nonsteroidal medications, which she does not normally take. Job ID: [id number] DocumentID: [id number] Dictated Date: 01/15/2020 08:18:00 Forms Analyst Date: 01/15/2020 08:59:47 Dictated By: WINSTON ULRICH MD [facility]
== END 2020-01-15 08:40 | disposition home or self-care (01) ==
LOC: ENDO 06:59
PROVIDERS: ATTEND Internal Medicine
DX: Z12.11 Encounter for screening for malignant neoplasm of colon (principal); D12.5 Benign neoplasm of sigmoid colon; K63.5 Polyp of colon; K44.9 Diaphragmatic hernia without obstruction or gangrene; K29.70 Gastritis, unspecified, without bleeding; K31.89 Other diseases of stomach and duodenum; F41.9 Anxiety disorder, unspecified; F32.9 Major depressive disorder, single episode, unspecified; M06.9 Rheumatoid arthritis, unspecified; K21.0 Gastro-esophageal reflux disease with esophagitis; M79.7 Fibromyalgia; Z87.891 Personal history of nicotine dependence; Z79.899 Other long term (current) drug therapy
CPT/HCPCS: 88305

== ENCOUNTER → 2020-07-06 | Outpatient (CLI) | payer OTHER | LOC: LABNPT 09:24 | PROVIDERS: ATTEND Internal Medicine | DX: Z20.828 Contact with and (suspected) exposure to other viral communicable diseases (principal) | CPT/HCPCS: 87635 ==

== ENCOUNTER → 2021-01-18 | Outpatient (CLI) | payer OTHER | LOC: LABNPT 07:08 | PROVIDERS: ATTEND Internal Medicine | DX: U07.1 COVID-19 (principal) | CPT/HCPCS: 87636 ==